=== PATIENT | male | born 1965 | race African-American/Black ===

== ENCOUNTER 2016-12-12 07:42 | Inpatient (IN) | payer BC, OTHER ==
--- NOTE | ~2016-12-12 | CN ---
Consultation Report [facility] [address] [place]. [address] NAME: AISHA HARMON : 69 STATUS : ADM IN PAT#: [id number] AGE: 51 ADM/REG DATE : 12/12/16 MR#: [id number] REPORT SERV DATE: 12/12/16 DICTATED BY: JUANITA CAMPOS DATE: 12/12/16 REPORT STATUS : Draft TRANSCRIBED BY: MODFrida DATE: 12/12/16 DATE OF CONSULTATION: HISTORY OF PRESENT ILLNESS: This is a 51-year-old patient who we were asked to see by Dr. Chaudhry. Unfortunately, the consult was requested at 10 a.m. this morning. Our service was not notified until almost 8 p.m. this evening, so the patient is being seen now. The patient himself cannot give a history, but apparently is more alert than he was when he came in to the emergency room this morning. He currently resides in [facility] and was recently treated in the hospital for weakness and chronic diarrhea. He was discharged just a few days ago. It appears that he was admitted to this facility on 11/29/2016. Chief complaints are fever, possible aspiration pneumonia, possibility of urinary tract infection, hypotension, and mild encephalopathy. The patient was cultured in the ER with blood cultures x2. Urine culture was sent. Urinalysis also was positive and urine culture is pending. He most recently was started on treatment for C difficile at the end of October and continues on Vancocin. PICC line was placed in the emergency room and the patient currently is on 2 mcg per minute of Levophed. We are asked to see him to assist in treatment of sepsis. ALLERGIES: THE PATIENT HAS NO KNOWN DRUG ALLERGIES. MEDICATIONS: At [facility] includes Tylenol, Xanax, carvedilol, aspirin, Peridex, Questran, Pepcid, gentamicin ophthalmic solution, Haldol, hydrocodone, Lantus insulin, sliding scale insulin, lisinopril, and vancomycin that was started on 12/09/2016. PAST MEDICAL HISTORY: Significant for: 1. Poorly controlled type 1 diabetes mellitus. 2. History of chronic pancreatitis, recently diagnosed C difficile colitis. 3. History of tobacco abuse and resultant COPD. 4. Nonischemic cardiomyopathy. 5. Systolic congestive heart failure, EF about 35%. 6. History of nephrolithiasis. 7. Fatty liver. 8. Essential tremor. 9. Low back pain. 10.History of hypertension. 11.Hypercholesterolemia. 12.Cholelithiasis. 13.Jejunal intussusception. 14.Erectile dysfunction. 15.Metabolic encephalopathy with severe hypoglycemic brain injury and coma. 16.History of previous left adrenal adenoma. PAST SURGICAL HISTORY: Kidney stones and PEG tube placement. The patient is a full code. Consultation Report [address] [address] NAME: AISHA HARMON : 69 STATUS : ADM IN PAT#: [id number] AGE: 51 ADM/REG DATE : 12/12/16 MR#: [id number] REPORT SERV DATE: 12/12/16 DICTATED BY: JUANITA CAMPOS DATE: 12/12/16 REPORT STATUS : Draft TRANSCRIBED BY: BALTAZAR DATE: 12/12/16 SOCIAL HISTORY: He is , Zoroastrian, unemployed, disabled, and currently resides in [facility]. FAMILY HISTORY: Significant for COPD and heart disease. REVIEW OF SYSTEMS: Unobtainable from the patient. PHYSICAL EXAMINATION: GENERAL: The patient does interact, but is difficult to understand at times. The patient is very thin, cachectic, and wasted-appearing gentleman. Does not appear to be in any respiratory distress. He is responsive, but difficult to understand. VITAL SIGNS: Temperature upon evaluation in the emergency room is 99, blood pressure currently on 2 mcg per minute of Levophed is 103/68, respiratory rate is 28, O2 saturation is 95% on 5 L, heart rate is 91. IV fluids are half normal saline at 125 mL an hour. SKIN: Warm and dry. HEENT: Head is atraumatic and normocephalic. The patient does have a nodule on the left lateral scalp that appears to be chronic. Pupils are sluggishly reactive. Sclerae anicteric. Conjunctivae are pink. Nasal mucosa is within normal limits. Oral mucosa is minimally dry. NECK: Supple without JVD, lymphadenopathy, or thyromegaly. The patient is contracted, but his extremities are able to be moved fairly easily. He has a right PICC line in place. LUNGS: Very coarse, particularly in the right lung field with occasional crackles. CARDIAC: Reveals a regular rate and rhythm with no significant murmurs and ectopic beats. GI: PEG tube is present. Bowel sounds are present. The patient has a stage IV decubitus on his sacrum. Dressing is in place. EXTREMITIES: Show significant old contractures and wasting. NEUROLOGIC: Difficult to determine, but apparently is more alert than he was when he first presented to the ER. He intermittently follows commands. Pulses are palpable and symmetrical. LABORATORY AND DIAGNOSTIC DATA: Chest x-ray shows right upper lobe infiltrate that is new. UA is positive and urine culture is pending. Procalcitonin is 18.78, lactate is 1.0. Initially, the patient was also swabbed for influenza A and B, which is negative. CBC at 7 o'clock this morning showed a white cell count of 8.8, a hemoglobin of 10, hematocrit of 30, and a platelet count of 300,000. INR is 1.1. PTT is 24, sodium is 137, potassium was 6.3, but that has come down to below 6, chloride is 114. Bicarbonate on admission was 13, BUN was 86, creatinine 1.46, glucose 386, troponin was 0.03. Lipase, AST, and ALT are within normal limits. ABG was done at 7 o'clock this morning and showed a pH of 7.29, a pCO2 of 26, pO2 of 66, and a bicarbonate of 12 and that was on nasal cannula at about 4 L. Most recent electrolyte show a sodium of 145, a potassium of 5.3, a chloride of 119, a bicarbonate of 16, a BUN which is now 71 and a creatinine which has come down to 1.13. Blood sugar is 2.15. LFTs remain normal. Lactic acid level is 1.0. EKG shows no ST- segment elevations or depressions. Consultation Report [facility] [place]. [address] NAME: AISHA HARMON : 69 STATUS : ADM IN PAT#: [id number] AGE: 51 ADM/REG DATE : 12/12/16 MR#: [id number] REPORT SERV DATE: 12/12/16 DICTATED BY: JUANITA CAMPOS DATE: 12/12/16 REPORT STATUS : Draft TRANSCRIBED BY: BALTAZAR DATE: 12/12/16 ASSESSMENT AND PLAN: This is a 51-year-old patient with multiple admissions to the hospital, mostly for fever and sepsis. Currently, he again came in with hypotension and was resuscitated with IV fluids. Cultures were done in the emergency room and currently, he is on cefepime, tobramycin, and vancomycin and these will be continued. Vancocin will be continued for Clostridium difficile diarrhea. We will check a cortisol level to see if the patient is adrenally insufficient and need Solu-Cortef. The patient also has been on antihypertensive medications in [facility]. Since he is hypotensive, these will be held until such time that he is off the Levophed. Hyperkalemia has resolved. DENIZ more than likely secondary to decreased volume status, and sepsis is slowly improving and will need to be followed. Metabolic acidosis is also improving as well and will continued to be followed. No need for bicarbonate at this time. The patient has no sacral decubitus and so wound care will see the patient as well. DVT prophylaxis, he has been provided with heparin subcutaneously and the patient currently is on Pepcid for GI prophylaxis. Diabetes mellitus, the patient currently on a sliding insulin scale. Tube feeds as per primary service through the PEG tube. Repeat lab work as well as ABG and chest x-ray will be obtained in the morning. This will be a charge for critical care time that was initiated at 2015 hours and ended at 2115 hours for a total of 60 minutes of critical care time. The patient is in critical condition and has potential for circulatory hepatic and renal failure as well as respiratory failure. He will need frequent manipulation of vasoactive drips, volume resuscitations, hemodynamic assessment, neurologic monitoring and treatment, and assessment and treatment of complex metabolic derangements. /MODL Juanita Campos M.D. / [id number] CC: Sly Chaudhry M.D.
--- NOTE | ~2016-12-12 | DS ---
Discharge Summary [facility] [address] [place]. [address] NAME: AISHA HARMON : 69 STATUS : DIS IN PAT#: [id number] AGE: 51 ADM/REG DATE : 12/12/16 MR#: [id number] REPORT SERV DATE: 01/27/17 DICTATED BY: NEELIMA SEGOVIA DATE: 01/26/17 REPORT STATUS : Draft TRANSCRIBED BY: BALTAZAR DATE: 01/26/17 Data Collection from hospitalization DISCHARGE DIAGNOSES: 1. Chronic diarrhea with history of Clostridium difficile colitis. 2. Acute kidney injury secondary to chronic diarrhea with history of chronic kidney disease. 3. Type 2 diabetes mellitus with insulin. 4. Dysphagia with PEG tube. 5. Severe protein-calorie malnutrition. 6. Electrolyte imbalance. 7. Metabolic acidosis. 8. Anemia secondary to chronic disease. 9. Hypertension. 10.History of alcohol abuse. 11.History of pancreatitis. 12.History of drug abuse. 13.Nicotine dependence. 14.Chronic obstructive pulmonary disease. 15.Systolic congestive heart failure. 16.Essential tremors. 17.Fatty liver. 18.Debilitation. 19.History of jejunal intussusception. 20.Gastroesophageal reflux disease. 21.Erectile dysfunction. 22.Hypercholesterolemia. 23.History of anoxic brain injury. CONSULTATIONS: Dr. Jordyn Campos. Dr. José Luis Narayanan Jr. Dr. Russell Menjivar. Dr. Angel Burris. Lenny Carvalho NP. PROCEDURES PERFORMED: 1. Gastrostomy tube replacement, 12/18/2016. 2. Renal ultrasound, 12/29/2016. 3. MRI of the abdomen without contrast, 12/31/2016. DISCHARGE MEDICATION: Peridex rinse one applications with mouthwash twice a day, Questran Light 4 g every four hours, Pepcid 20 mg at bedtime, ferrous sulfate 300 mg twice a day, Haldol 1 mg per PEG tube three times a day, heparin 5000 units subcutaneously every 12 hours, NovoLog injection insulin as instructed, Creon 48,000 units per PEG tube three times a day, Mag-Ox 400 mg twice a day, Reglan 5 mg every 8 hours, multivitamin liquid 5 mL per PEG tube every morning, Lopressor 12.5 mg every 12 hours as instructed, Florastor one capsule twice a day, sodium bicarbonate 1300 mg three times a day, vancomycin 125 mg every 12 hours as instructed and then 125 mg daily as instructed, Levemir 5 units subcutaneously at bedtime, Tylenol 650 mg per PEG tube three times a day as needed, Xanax 1 mg per PEG tube every eight hours as needed, Humalog injection insulin as instructed, glucose tablets three tablets as needed, [place] 7.5/325 one tablet per PEG tube every four hours as needed, Zenpep Discharge Summary [address] [address] NAME: AISHA HARMON : 69 STATUS : DIS IN PAT#: [id number] AGE: 51 ADM/REG DATE : 12/12/16 MR#: [id number] REPORT SERV DATE: 01/27/17 DICTATED BY: NEELIMA SEGOVIA DATE: 01/26/17 REPORT STATUS : Draft TRANSCRIBED BY: BALTAZAR DATE: 01/26/17 one capsule as needed, sodium bicarbonate 325 mg as needed, sodium chloride as instructed, aspirin 81 mg per PEG tube every morning. CONDITION AT DISCHARGE: Stable. DISPOSITION: The patient was discharged to [facility] on a pureed diet with activities as instructed. HOSPITAL COURSE: This is a 51-year-old man, who is well-known to me and was transferred from [facility] to the [facility] emergency room with a chief complaint of fever. The patient was recently in the hospital for weakness and chronic diarrhea. He was discharged a few days prior to this admission. Unfortunately, he returned to the emergency room at this time with fever. He was found to have probable aspiration pneumonia and questionable urinary tract infection. He also has hypertension. He was felt to have sepsis. IV fluids, antibiotics, and critical care monitoring would be provided. He was lying in bed in a semi-contracted position, which was his usual state. He was not responsive. When he was last seen at his baseline, he usually responded to some questions appropriately. He would try to get out of bed and had been somewhat interactive. He was admitted to the hospital at this time for further evaluation and treatment. Upon admission, his INR level was 1.1 and creatinine was 1.45. Chest x-ray showed right upper and lower lobe pneumonia. IV fluids were started. He was going to be covered with Zosyn for pneumonia, which was probably aspiration. Pressors would be added as needed for continued low blood pressures. Urine culture would be obtained and he would be treated accordingly. His code status was going to be addressed with his . The patient is chronically debilitated and is definitely in need of a probable DNR status as he would probably have frequent readmissions for the same chronic problems. DVT precautions were in place. Tube feedings were held. We elevated the head of his bed. When we resume his tube feedings, we would give prokinetic to avoid aspiration. A PICC line was inserted. The patient was seen by Dr. Jordyn Campos. He had recently been started on treatment for C difficile at the end of October and remained on vancomycin. A PICC line had been placed. He was receiving Levophed. She had been asked to assist in treatment of sepsis. Chest x- ray showed right upper lobe infiltrate that was new. Urinalysis was positive and urine culture was pending. Influenza A and B swabs were negative. He had been hypotensive and resuscitated with IV fluids. He was receiving cefepime, tobramycin, and vancomycin. The Vancocin would be continued for Clostridium difficile diarrhea. We would check his cortisol level. To see if he was adrenally insufficient and needed Solu-Cortef, hypertensive medications were going to be held until he was off Levophed. Hyperkalemia had resolved. It was felt that his acute kidney injury was likely secondary to decreased volume status and sepsis was slowly improving. Metabolic acidosis was also improving. There was no need for bicarbonate at this time. DVT prophylaxis was provided with heparin subcutaneously. Pepcid was continued for GI prophylaxis. He was currently on sliding scale insulin. The following day, the patient denied any pain or difficulty breathing. His fever was felt likely secondary to aspiration pneumonia. The fever was improving. Tylenol was continued for the fever. He remained on IV antibiotics. He was weaned off Levophed. Blood cultures were negative. On the , he did have brief runs of nonsustained ventricular tachycardia that morning. He was tolerating tube feedings. He had a brief episode of atrial arrhythmia the Discharge Summary [address] [place]. [address] NAME: AISHA HARMON : 69 STATUS : DIS IN PAT#: [id number] AGE: 51 ADM/REG DATE : 12/12/16 MR#: [id number] REPORT SERV DATE: 01/27/17 DICTATED BY: NEELIMA SEGOVIA DATE: 01/26/17 REPORT STATUS : Draft TRANSCRIBED BY: MODFrida DATE: 01/26/17 previous evening. Blood culture was now 1/2 positive for Gram-negative bacilli. Chest x- ray still showed right upper and lower lobe pneumonia. On , he was seen by Dr. Russell Menjivar regarding nonsustained ventricular tachycardia. The patient had developed an episode of ventricular ectopy around 7 a.m. the previous morning. The remainder of his rhythm strips were reviewed and showed only sinus rhythm. The ventricular tachycardia was nonsustained. He has a history of nonischemic cardiomyopathy with ejection fraction of approximately 35%. He agreed with the addition of beta-naeem. Electrolyte protocol was in place. He was not a candidate for AICD. He did not recommend further treatment unless this became sustained. He was also seen by Dr. Angel Burris for evaluation and treatment of multiple infections. The patient had been found to have Escherichia coli sepsis, but he felt was due to aspiration pneumonia and probably other organisms, including alpha strep and anaerobics involved in that. He had a positive urine culture that could be chronic with him since he has a chronic Gant and this may not be playing much of a role now. He has Clostridium difficile colitis and the treatment of this would be made much more difficult with trying to treat Escherichia coli sepsis. We were going to change his gram-negative coverage to gentamicin. We would give this for seven days if he could tolerate it. It was felt that he would need two or three more days of intravenous vancomycin and Flagyl because of the aspiration event. Oral vancomycin would be continued for at least three weeks and then tapered. He was evaluated by Physical Therapy. On 12/16/2016, antibiotics were continued. He seemed to be tolerating his tube feedings. His urine culture was positive for Klebsiella. Blood culture 1/2 is positive for E coli. He had no nausea or vomiting. He had no fevers or chills. On , he seemed to be feeling better. He was afebrile. IV vancomycin and Flagyl were stopped. Bactrim and oral vancomycin were continued. The patient underwent gastrostomy tube replacement as it was found to be clogged. On the following day, he denied any shortness of breath, chest pain, nausea, vomiting, or abdominal pain. He was tolerating tube feedings and had no other issues after the PEG tube had been clogged and replaced. He developed some right-sided conjunctivitis and this was improving. The nurse stated that the patient had some increased agitation and had been given Ativan. On , he completed his IV gentamicin. He tolerated a bedside swallow study. His sliding scale insulin was increased to level 2. Levemir was increased. He was beginning to tolerate an oral diet. He had no residual issues with tube feedings. Antibiotic treatment continued. The patient denied any breathing difficulties. He does have some mild upper rhonchi. Chest x-ray showed improvement. On 12/28/2016, he was up sitting in a chair. He denied any complaints of shortness of breath, chest pain, nausea, vomiting, or abdominal pain. His stools had become more formed. He was seen by Lenny Carvalho. Creatinine had risen to 2.52. It was felt that the patient likely had acute kidney injury related to possible volume contraction and his hyperkalemia is resultant from his acidosis. We would not use Kayexalate considering his chronic diarrhea and treat him with 10 units of regular insulin and 0.5 amp of D50 quarter normal saline with 2 amps of bicarbonate. We would recheck his blood glucose one hour following this to avoid any instances of unseen hypoglycemia. A renal ultrasound was going to be checked as he does have a history of renal stones. He does have good urinary output. He was not felt to be considered a dialysis patient should his renal function continued to deteriorate due to his multiple comorbidities and medical history. We were hopeful that he would return to his previous baseline over the next 72 hours. Discharge Summary [address] [address] NAME: AISHA HARMON : 69 STATUS : DIS IN PAT#: [id number] AGE: 51 ADM/REG DATE : 12/12/16 MR#: [id number] REPORT SERV DATE: 01/27/17 DICTATED BY: NEELIMA SEGOVIA DATE: 01/26/17 REPORT STATUS : Draft TRANSCRIBED BY: MODFrida DATE: 01/26/17 On 12/30/2016, renal ultrasound had been performed. He denied any complaints of pain. He tolerated his tube feedings nocturnally. Creatinine level was now 2.84. On , an MRI of the abdomen without contrast was performed. The nurse was unable to flush the Gant catheter and this was changed. He had been found to have a solid 1.6 cm left renal upper pole cortical nodule with mild internal vascularity. There was an indeterminate left renal 2.1 cm interpolar potential solid nodule versus cyst, filled with internal debris. There were multiple bilateral nonobstructing renal calculi. He had no hydronephrosis. There were small bilateral renal cysts. His MRI had shown two suspicious renal lesions. Additional follow up is recommended. It was felt that two lesions in the right middle lobe were suspicious for either multifocal pneumonia or metastatic disease. He had no new complaints. He was seen by Dr. José Luis Narayanan Jr, regarding difficult Gant placement. His catheter was due to be changed that morning and this was attempted. His old catheter was removed. The nursing staff was unable to replace the catheter. The patient's said that he had this catheter for several years. He had been catheter dependent due to incontinence. He had not seen a urologist, although he does have a history of nephrolithiasis with the above stated chronic retention and Gant placement. He was nonverbal, but could follow commands quite well. Urine culture was positive for yeast. Creatinine level was now 2.93. He replaced the Gant catheter to an 18-Tajik coude under sterile conditions. There was some difficulty navigating the prostate, but overall reasonably easy catheter placement. He recommended that the patient be continued on catheter changes at [facility]. He wanted to follow up with the patient in approximately one year for repeat imaging of the renal mass. He had good urine output. IV fluids were continued. The IV fluids were decreased. His C difficile diarrhea had improved. Hyperkalemia had also improved. He continued to request something to eat. The fluids were adjusted. The patient did have some acute bleeding of the sacral wound. He was seen by Dr. Lenny Pate. The patient did have some oozing of the wound. This was packed with Surgicel. Sterile dressing was applied. C difficile study was now negative. Creatinine had decreased to 2.78. On 01/07/2017, he was less conversant. He was in no distress. He denied pain, nausea, vomiting, or diarrhea. He was afebrile. He seemed to be eating well. He did have some diarrhea. He does have a history of C difficile colitis. IV fluids were increased. His diarrhea worsened. The patient was eating very well. On , the patient was seen by Dr. Galdino Amador regarding palliative care. The patient was felt to have multiorgan failure. He was C difficile negative at this time. He was felt to possibly have metastatic cancer-suspect renal. He is not a candidate for any type of therapy, except comfort care. At times, the patient was still try to get out of bed. Fall precautions were still in place. Potassium level had increased. The patient was still a full code at this time. He continued to have persistent diarrhea. The patient's dismal prognosis was discussed with the patient's family. Options of care were discussed. Palliative care was begun. He remained stable over the next couple of days. Discharge planning was performed. The patient's rectal tube was accidentally pulled out by the patient. On 01/16/2017, it was elected to keep the rectal tube out. The patient had been made a DNR code status. Creatinine level was 3.01. Discharge instructions were given. Due to his stable condition, he was transferred to [facility] with the above-stated instructions. Information collected by: Brooke Arellano Discharge Summary [address] [address] NAME: AISHA HARMON : 69 STATUS : DIS IN PAT#: [id number] AGE: 51 ADM/REG DATE : 12/12/16 MR#: [id number] REPORT SERV DATE: 01/27/17 DICTATED BY: NEELIMA SEGOVIA DATE: 01/26/17 REPORT STATUS : Draft TRANSCRIBED BY: MODFrida DATE: 01/26/17 I submit the above information as my discharge summary. LUCY/BALTAZAR Neelima Segovia M.D. / [id number] CC: Nicky Gonzalez M.D., [facility] Lenny Carvalho, Nicky Larson Jr., Jr., M.D. Robert Warren Goldmann, M.D. Angel [place], M.D.
--- NOTE | ~2016-12-12 | CN ---
Consultation Report [facility] [address] [place]. [address] NAME: AISHA HARMON : 69 STATUS : ADM IN PAT#: [id number] AGE: 51 ADM/REG DATE : 12/12/16 MR#: [id number] REPORT SERV DATE: 01/01/17 DICTATED BY: JOSÉ LUIS NARAYANAN JR. DATE: 01/01/17 REPORT STATUS : Draft TRANSCRIBED BY: MODL DATE: 01/01/17 CONSULT NOTE DATE OF CONSULTATION: 01/01/2017 REFINERY PIPELINE OPERATOR: José Luis Narayanan MD. CHIEF COMPLAINT: Difficult Gant placement. HISTORY OF PRESENT ILLNESS: Mr. Harmon is a 51-year-old gentleman, who was admitted to the hospital on 12/12/2016 with a complaint of fever. He was transferred from [facility] [place] to [facility] due to the patient's decreased mental status and difficulty of obtaining history. The patient was admitted to the hospital for further observation. He has been in the hospital since that time. His catheter was due to be changed this morning, and this was attempted. His old catheter was removed, and the nursing staff was unable to replace the catheter. I was consulted for Gant placement. I spoke to the patient's , she told me that he has had this catheter for several years. He has been catheter dependent due to incontinence. He has not seen urologist although he does have a history of nephrolithiasis and the above stated chronic retention and Gant placement. He is nonverbal but does follow commands quite well. I was unable to get any other history than that. MEDICATIONS: Please see the medical record in the chart. I reviewed those medications. ALLERGIES: NONE KNOWN. PAST MEDICAL HISTORY: Significant for insulin-dependent diabetes poorly controlled, alcohol abuse, pancreatitis, drug abuse, nicotine dependence, COPD, systolic CHF with nonischemic cardiomyopathy, essential tremors, fatty liver, chronic diarrhea, diagnosis of C. diff while in the hospital, overall debilitation, jejunal intussusception in the past, cholelithiasis, nephrolithiasis, gastroesophageal reflux disease, hypertension, erectile dysfunction, and hypercholesterolemia. SOCIAL HISTORY: Resides at [facility]. He is , unemployed and disabled, history of smoking in the past as well as drinking and drug abuse but none currently. FAMILY HISTORY: Mother and brother with COPD, father with heart disease. REVIEW OF SYSTEMS: Review of systems unable to be obtained due to the patient's mental status. PHYSICAL EXAMINATION: GENERAL: He is a thin male in no acute distress. VITAL SIGNS: He is afebrile, his vital signs are stable. Consultation Report [facility] [id number] [place]. [address] NAME: AISHA HARMON : 69 STATUS : ADM IN PAT#: [id number] AGE: 51 ADM/REG DATE : 12/12/16 MR#: [id number] REPORT SERV DATE: 01/01/17 DICTATED BY: JOSÉ LUIS NARAYANAN JR. DATE: 01/01/17 REPORT STATUS : Draft TRANSCRIBED BY: BALTAZAR DATE: 01/01/17 HEENT: Normocephalic and atraumatic. NECK: Symmetric. CHEST: Clear to auscultation bilaterally. HEART: Regular rate and rhythm. ABDOMEN: Soft, nontender, nondistended without palpable hernias. : He has a PEG tube in place. He has a normal male external genitalia with eroded meatus from chronic indwelling Gant. LABORATORY: Urine culture was positive for yeast, creatinine level 2.93 which he is known to have chronic stage III renal failure, white blood cell count 4.2, hemoglobin 9.2, platelets 469. IMAGING: MRI the abdomen without contrast shows a small cortical cyst on the right side. No hydronephrosis on the left side. There is a 1.1 x 0.9 cm low signal intensity structure in the left kidney. This is worrisome for representing hemorrhagic or calcified tumor. CT scan from 12/14/2016 did not demonstrate calcium in this area, however, detail without contrast is quite poor. There was also partially exophytic cyst in the mid cortex and also again on the lower pole on the left side. ASSESSMENT: Urinary retention, small left renal mass, less than 1 cm. RECOMMENDATIONS: I replaced the Gant catheter to 18-[place] under sterile conditions. There was some difficulty navigating the prostate but overall reasonably easy catheter placement. I have recommended he continue catheter changes at [facility]. I will need to follow him back in approximately one year for repeat imaging of this renal mass. We will arrange for followup prior to discharge with a renal ultrasound in one year. CHANTEL José Luis Narayanan Jr., M.D. / [id number] CC: Sly Chaudhry M.D.
--- NOTE | ~2016-12-12 | CN ---
Consultation Report [facility] [address] [place]. [address] NAME: HARMEET HARMON : 69 STATUS : ADM IN PAT#: [id number] AGE: 51 ADM/REG DATE : 12/12/16 MR#: [id number] REPORT SERV DATE: 12/15/16 DICTATED BY: RUSSELL FARIAS DATE: 12/15/16 REPORT STATUS : Draft TRANSCRIBED BY: MODFrida DATE: 12/15/16 CARDIOVASCULAR CONSULTATION DATE OF CONSULTATION: 12/15/2016 REASON FOR CONSULTATION: Nonsustained ventricular tachycardia. HISTORY OF PRESENT ILLNESS: Mr. Harmeet Harmon is a 51-year-old gentleman with past medical history significant for anoxic brain injury. He resides at [facility]. He also has a history of nonischemic cardiomyopathy, COPD, hypertension, hyperlipidemia, alcohol abuse with fatty liver disease. He was admitted with sepsis, hypotension, and metabolic derangements. He had an episode of ventricular ectopy which was at about 7 a.m. yesterday morning. The remainder of the rhythm strips were reviewed and show only sinus rhythm. The ventricular tachycardia was nonsustained. The patient is unable to provide interview. He responds to questioning with "I am hungry." PAST MEDICAL HISTORY: As noted above significant for nonischemic cardiomyopathy, sepsis, hypotension, COPD, hypertension, and hyperlipidemia. The patient also has been diagnosed with C. difficile. He has a history of nephrolithiasis. He has a history of alcohol abuse, chronic pancreatitis, and fatty liver. His last known ejection fraction was approximately 35%. Patient also with a history of metabolic encephalopathy with severe hypoglycemic brain injury and coma. He is status post PEG tube placement. SOCIAL HISTORY: The patient resides at [facility]. He does not currently smoke. FAMILY HISTORY: Noncontributory. PHYSICAL EXAMINATION: VITAL SIGNS: Blood pressure 112/79, pulse 81, temperature 98.9, and respiratory rate 16. GENERAL: This is a thin chronically ill-appearing 51-year-old gentleman who is unable to provide appropriate response to questioning. CARDIOVASCULAR: Normal rate with regular rhythm. A 1/6 systolic murmur heard best at the left lower sternal border. LUNGS: Revealed fair excursion with diffuse rhonchi but no wheezes or rales. EXTREMITIES: Without clubbing, cyanosis, or edema. DATA: EKG shows sinus tachycardia with nonspecific ST-T-wave abnormalities. LABORATORY: Significant for hematocrit of 26. BUN and creatinine 28 and 0.72. Potassium was 4.0. Magnesium was borderline at 1.7. ASSESSMENT: 1. Nonsustained ventricular tachycardia. Consultation Report [facility] [id number] [place]. [address] NAME: HARMEET HARMON : 69 STATUS : ADM IN PAT#: [id number] AGE: 51 ADM/REG DATE : 12/12/16 MR#: [id number] REPORT SERV DATE: 12/15/16 DICTATED BY: RUSSELL FARIAS DATE: 12/15/16 REPORT STATUS : Draft TRANSCRIBED BY: MODL DATE: 12/15/16 2. History of nonischemic cardiomyopathy, ejection fraction approximately 35%. 3. Chronic obstructive pulmonary disease. 4. Hypertension. 5. Hyperlipidemia. 6. Admitted for sepsis and hypotension. PLAN: 1. Now that the patient's vital signs are stable, I agree with the addition of beta naeem. 2. Electrolyte protocol. 3. Patient not a candidate for AICD. We would not recommend further treatment unless it becomes sustained. I appreciate your consultation. I will be available as needed. /BALTAZAR Russell Farias M.D., [facility] / [id number] CC: Sly Chaudhry M.D.
--- NOTE | ~2016-12-12 | CN ---
Consultation Report [facility] [address] [place]. [address] NAME: AISHA HARMON : 69 STATUS : ADM IN PAT#: [id number] AGE: 51 ADM/REG DATE : 12/12/16 MR#: [id number] REPORT SERV DATE: 12/15/16 DICTATED BY: RIMMA CANAS DATE: 12/15/16 REPORT STATUS : Draft TRANSCRIBED BY: MODL DATE: 12/15/16 INFECTIOUS DISEASE CONSULTATION DATE OF CONSULTATION: REASON FOR REFERRAL: Evaluation and treatment of multiple infections. HISTORY OF PRESENT ILLNESS: This is a 51-year-old male with a past medical history of diabetes mellitus, past IV drug and ethanol abuse, severe pancreatitis, chronic obstructive pulmonary disease, congestive heart failure, fatty liver, hypertension, and hyperlipidemia. He was just here in October, at which time he had Clostridium difficile colitis. He went back to the long-term care facility he was staying in, but became in on 12/12/2016 with two days of fevers and decreased mental status. He had an observed aspiration and had marked infiltrates on his right middle lobe and right lower lobe. [place] to be aspiration pneumonitis. He also had a very abnormal urinalysis greater than 182 white cells, leukocyte esterase strong positive. Cultures were sent. It was assumed that the C. diff was still present, so oral vancomycin has been started as well. He was given IV vancomycin and aztreonam empirically. Since then, the urine has grown out a pansensitive Klebsiella. His blood is positive one of two for E. coli that is relatively resistant, but sensitive to the aztreonam. He defervesced, but mental status remains abnormal. He has no decubitus ulcers or sores. No other likely sources of infection. PAST MEDICAL HISTORY: Otherwise unremarkable. MEDICATIONS: As outlined above. ALLERGIES: HE HAS NO KNOWN ANTIMICROBIAL ALLERGIES. SOCIAL HISTORY: As above. He is . He has two children, but very debilitated and is now currently bed bound in a long-term care facility. FAMILY HISTORY: Noncontributory. PHYSICAL EXAMINATION: GENERAL: An ill-appearing, adult, male. Eyes open, but not really responding to speech which he usually does per his mother. VITAL SIGNS: His temperature was 103 just after he came in, but he has been afebrile last 24 hours, 97.4 at present with a pulse of 71, respirations 20, blood pressure is 146/97. His weight is 51 kg. HEENT: Sclerae clear. No oral lesions could be seen. NECK: Supple. LUNGS: Bilateral heavy rhonchi, particularly throughout the right lung kearns, a few on the left. HEART: Regular rate and rhythm. Consultation Report [facility] [id number] [place]. [address] NAME: AISHA HARMON : 69 STATUS : ADM IN [facility]#: [id number] AGE: 51 ADM/REG DATE : 12/12/16 MR#: [id number] REPORT SERV DATE: 12/15/16 DICTATED BY: RIMMA CANAS DATE: 12/15/16 REPORT STATUS : Draft TRANSCRIBED BY: BALTAZAR DATE: 12/15/16 ABDOMEN: Soft, nontender. Positive bowel sounds. EXTREMITIES: Without clubbing, cyanosis, or edema. No wounds are noted. IV site without signs of inflammation. LABORATORY DATA: His white blood cell count was 8.8 when he came in, 7.7 today with hematocrit 26.3, platelets 347. At admission, he had 78% bands. Differential now is normal. BUN and creatinine are 28 and 0.72. His procalcitonin 18.78. Cultures, as previously mentioned. IMPRESSION: 1. Escherichia coli sepsis, that I think is due to an aspiration pneumonia and probably other organisms including alpha strep and anaerobes involved in that. 2. Positive urine culture that could be chronic with him since he has a chronic Gant, and may not be playing much of a role now. 3. Clostridium difficile colitis, the treatment of which would be made much more difficult with trying to treat Escherichia coli sepsis. RECOMMENDATIONS: 1. We will change his gram-negative coverage to gentamicin. Check a trough tomorrow to ensure it is not being overdosed, and we will give seven days of that if he is able tolerate it. 2. I think he needs two to three more days of intravenous vancomycin and Flagyl because of the aspiration event. 3. Continue oral vancomycin for at least three weeks and then, taper it. Finally, I will follow the patient with you. I appreciate very much your consulting on this patient. ADRIAN Rimma Canas M.D. / [id number] CC: Sly Chaudhry M.D.
--- NOTE | ~2016-12-12 | CN ---
Consultation Report [facility] [address] [place]. [address] NAME: AISHA HARMON : 69 STATUS : ADM IN PAT#: [id number] AGE: 51 ADM/REG DATE : 12/12/16 MR#: [id number] REPORT SERV DATE: 12/29/16 DICTATED BY: DATE: REPORT STATUS : Draft TRANSCRIBED BY: MODL DATE: 12/29/16 CONSULTATION DATE OF CONSULTATION: REASON: Acute kidney injury, acidosis, hyperkalemia. HISTORY OF PRESENT ILLNESS: This is a fairly pleasant 51-year-old male patient who resides at [facility], who presented initially on 12/02/2016 to [facility] with a complaint of fever. He was admitted in favor of further supportive care and required ICU level care and seen in consultation by Critical Care Services on 12/12/2016 on admission. He was also seen by Cardiology on 12/15/2016 for a nonsustained ventricular tachycardia and was seen in consultation by Infectious Disease for evaluation of multiple infections and antibiotic recommendations. He is currently positive for C. difficile and remains on p.o. vancomycin for active treatment. Creatinine baseline appears to be by history sub 1.0 as late as 12/21/2016 at 0.83. Laboratories were not collected again until 12/25/2016 showing a creatinine of 1.51. On 12/26/2016, it was at 1.89. Laboratories were not collected again until 12/27/2016 showing a creatinine of 2.02; 12/28/2016, 2.23; and now 2.52. The patient is sitting at bedside. It is difficult for him to participate in HPI due to previous anoxic brain injury, but he is awake and alert, in no acute distress. Denies current chest pain. No current nausea or vomiting, is chronic for diarrhea. PAST MEDICAL HISTORY: Positive for chronic diarrhea, recent medical history as listed above, positive for C. difficile colitis, insulin-dependent diabetes mellitus type 1 which is poorly controlled, history of EtOH abuse, pancreatitis, drug abuse, nicotine dependent, COPD, systolic CHF with nonischemic cardiomyopathy with ejection fraction of 35-40%, essential tremors, fatty liver, recent chronic diarrhea as above with C. difficile diagnosis, overall debilitation, jejunal intussusception, cholelithiasis, nephrolithiasis, GERD, hypertension, erectile dysfunction, and hypercholesterolemia. PAST SURGICAL HISTORY: Kidney stones and PEG tube placement. SOCIAL HISTORY: Resides at [facility]. Unemployed and disabled. History of smoking and drinking and drug abuse with anoxic brain injury related by history of drug abuse. FAMILY HISTORY: Noncontributory and not reviewed during this consultation and dictation. REVIEW OF SYSTEMS: Completed primarily with assistance of nursing staff as well as previous available dictations as the patient is not able to fully participate in the HPI review. ALLERGIES: HE LISTS NO KNOWN MEDICATION ALLERGIES. Consultation Report [facility] [id number] [place]. [address] NAME: AISHA HARMON : 69 STATUS : ADM IN PAT#: [id number] AGE: 51 ADM/REG DATE : 12/12/16 MR#: [id number] REPORT SERV DATE: 12/29/16 DICTATED BY: DATE: REPORT STATUS : Draft TRANSCRIBED BY: BALTAZAR DATE: 12/29/16 ACTIVE MEDICATIONS: Include liquid tears, aspirin, Peridex rinse, Questran, Pepcid, ferrous sulfate, Haldol, heparin, and NovoLog sliding scale. Also Creon, Reglan, Lopressor, multivitamin, and Vancocin p.o. He does have antiemetic medications as well as antihypoglycemic medications and also electrolyte protocol. PHYSICAL EXAMINATION: VITAL SIGNS: Blood pressure at 112/76, pulse 74, 98.1 temperature, and saturation 98% on room air. GENERAL: He is awake and alert, in no acute distress. HEENT: Normocephalic, atraumatic. Normal ocular movements. No scleral icterus or conjunctival pallor is appreciated. NECK: Without thyromegaly. No JVD or mass. CHEST: Shows positive S1 and S2. No rubs or gallops. LUNGS: Diminished throughout normal expansion and effort bilaterally. No adventitious breath sounds are noted. GI: Positive bowel sounds in all four quadrants. No appreciable mass or tenderness. : Examination is deferred. He does have a Gant catheter to bedside drainage with clear yellow urine. NEUROLOGIC: He is unable to be tested, but does have a gross motor deficits as noted to previous anoxic brain injury. SKIN: Warm, dry, and intact to visualized surfaces. No rash, lesions, or ecchymosis. PSYCH: He is of appropriate mood and affect and mentation seems slow but clear overall. LABORATORY DATA: Pertinent laboratories and imaging to this evaluation are as follows. Electrolyte profile shows a sodium of 129, potassium 6.0, chloride 102, CO2 14, BUN 35, creatinine 2.52, reflected GFR 33 mL/minutes, glucose of 209, calcium at 9.6. Most recent CBC taken on 12/25/2016, white blood cells of 9.9, RBC 3.68, hemoglobin 10.1, hematocrit 31.2, platelets at 588. IMPRESSION AND PLAN: This is a 51-year-old male patient, long complicated medical history as listed above, recent admission to [facility] with sepsis like picture and positive for C. difficile and multiple infections followed by subspecialties as listed now though with an acute kidney injury, hyperkalemia, and acidosis with laboratory pattern as listed above. The patient likely has an acute kidney injury related to possible volume contraction and his hyperkalemia is resultant from his acidosis. We would forego use of Kayexalate considering his chronic diarrhea and treat him with 2 units of regular insulin and half an amp of D50, quarter normal saline with 2 amps of bicarb at 125. Recheck his blood glucose in 1 hour to avoid any instances of unseen hypoglycemia. Considering his history of renal stones, we will also check a renal ultrasound to rule that out. He does however have good urinary output and I feel at this point that the patient would not be considered a dialysis patient should his renal function continue to deteriorate due to his multiple comorbidities and medical history. We are hopeful, with measures as taken above. He will return to his previous baseline over the next 72 hours. We appreciate the opportunity to provide consultation and assistance in this patient's care. Modification may Consultation Report [facility] [address] [place]. [address] NAME: AISHA HARMON : 69 STATUS : ADM IN PAT#: [id number] AGE: 51 ADM/REG DATE : 12/12/16 MR#: [id number] REPORT SERV DATE: 12/29/16 DICTATED BY: DATE: REPORT STATUS : Draft TRANSCRIBED BY: BALTAZAR DATE: 12/29/16 be undertaken based on clinical presentation of the patient, laboratory results, further consultation with renal attending. /BALTAZAR Lenny Carvalho NP / [id number] CC: Sly Chaudhry M.D.
--- NOTE | ~2016-12-12 | HP ---
History And Physical [address] [place]. [address] NAME: AISHA HARMON : 69 STATUS : ADM IN PAT#: [id number] AGE: 51 ADM/REG DATE : 12/12/16 MR#: [id number] REPORT SERV DATE: 12/12/16 DICTATED BY: NEELIMA SEGOVIA DATE: 12/12/16 REPORT STATUS : Draft TRANSCRIBED BY: BALTAZAR DATE: 12/12/16 DATE OF ADMISSION: 12/12/2016 CHIEF COMPLAINT: Fever. HISTORY OF PRESENT ILLNESS: A 51-year-old black male well known to me was transferred from [facility] to [facility] Emergency Room for the above complaint. Due to patient's decreased mental status, full history and physical exam difficult to obtain. Chart and staff were reviewed. The patient was recently in the hospital for weakness and chronic diarrhea. Please see old medical records. He was recently discharged a few days ago. Unfortunately, he returned to the emergency room today with fever. He was noted to have probable aspiration pneumonia and questionable urinary tract infection. He also has hypertension and therefore was admitted for sepsis, IV fluids, IV antibiotics, and critical care monitoring. Currently, the patient is lying in bed, semi-contracted in his usual state, is not as responsive as he was when I saw him last time when baseline, he is usually responding to some questions appropriately, trying to get out of bed, and somewhat interactive. ALLERGIES: NO KNOWN DRUG ALLERGIES. MEDICATIONS: Please see MAR. PAST MEDICAL HISTORY: IDDM type 1, poorly controlled, history of alcohol abuse, pancreatitis, drug abuse, nicotine dependence, COPD, systolic CHF with nonischemic cardiomyopathy with ejection fraction of 35 to 40%, essential tremors, fatty liver, recent chronic diarrhea that was diagnosed with C. diff, overall debilitation, jejunal intussusception, cholelithiasis, nephrolithiasis, GERD, hypertension, erectile dysfunction, and hypercholesterolemia. CODE STATUS: Full code. PAST SURGICAL HISTORY: Kidney stones, PEG tube placement. SOCIAL HISTORY: The patient resides at [facility], is , Mosque mormon, unemployed and disabled, history of smoking and drinking and drug abuse. FAMILY HISTORY: Mother and brother with COPD and father with heart disease. REVIEW OF SYSTEMS: Unable to obtain due to the patient's decreased mental status. PHYSICAL EXAMINATION: VITAL SIGNS: Blood pressures-have been running low in the 80s, trying IV fluid resuscitation at this time, pulse 120s that appears just to be sinus tach, respirations 16 History And Physical [address] [address] NAME: AISHA HARMON : 69 STATUS : ADM IN PAT#: [id number] AGE: 51 ADM/REG DATE : 12/12/16 MR#: [id number] REPORT SERV DATE: 12/12/16 DICTATED BY: NEELIMA SEGOVIA DATE: 12/12/16 REPORT STATUS : Draft TRANSCRIBED BY: MODFrida DATE: 12/12/16 to 20, temp on arrival to the emergency room was 99.0. GENERAL: Black male well known to me, lying in bed and is not in his usual mental status. HEAD: Normocephalic with old left-sided nodule that is chronic. EYES: Mildly red conjunctivae which is usual for him but otherwise unremarkable. ENT: O2 present with poor dentition and moist otherwise. NECK: Cachectic. LUNGS: Bilateral rhonchi and rales in the bases. HEART: Tachycardic without murmurs, gallops, or rubs. ABDOMEN: PEG tube is present, positive bowel sounds, otherwise no signs or symptoms of tenderness. EXTREMITIES: Old contractures, otherwise wasting is present. SKIN: The patient has old sacral pressure ulcer that appears to be improving at this time. Please see wound care. NEUROLOGIC: Chronic neurological changes and the patient is not in his normal mental status at this time. LABS: CBC shows WBC 8.8, H and H 10.1 and 30.9, and PLT 300. INR 1.1. Chemistry shows NA 143, K 5.2, CO of 116, CO2 of 13, lactate 1.4 (capital N), BUN 80, creatinine 1.45, GFR 65. Glucose 284. Albumin 2.8 (capital L). Liver functions unremarkable at this time. Cardiac enzyme is negative. Blood gas shows pH 7.29, pCO2 of 26, PO2 of 66, base excess is -13, bicarb is 12, and O2 saturation 91%. Urinalysis shows Gant, sample that is cloudy and otherwise appears to have many yeast and many bacteria. Culture pending at this time. X-RAY: Portable chest x-ray done in the emergency room shows right upper and lower lobe pneumonia. IMPRESSION: 1. Fever. 2. Right upper and lower lobe pneumonia, probably aspiration as well as health center- acquired pneumonia. 3. Mixed acid base disorder. 4. Sepsis, probably secondary to pneumonia. 5. Pyuria with Gant-chronic Gant. 6. Acute kidney injury on chronic kidney disease, stage III now. 7. IDDM type 1-poorly controlled. 8. Hyperkalemia. 9. Anemia of chronic disease. 10.History of alcohol and drug abuse. 11.COPD. 12.Systolic CHF with nonischemic cardiomyopathy. 13.Gastroesophageal reflux disease. 14.Hypertension. 15.Recent infection with Clostridium difficile colitis. PLAN: 1. We will admit, give IV fluids, and treat fever. 2. We will cover with Zosyn for pneumonia which is probably aspiration. The patient is at risk for respiratory failure. History And Physical [address] [address] NAME: AISHA HARMON : 69 STATUS : ADM IN [facility]#: [id number] AGE: 51 ADM/REG DATE : 12/12/16 MR#: [id number] REPORT SERV DATE: 12/12/16 DICTATED BY: NEELIMA SEGOVIA DATE: 12/12/16 REPORT STATUS : Draft TRANSCRIBED BY: BALTAZAR DATE: 12/12/16 3. Support with IV fluids at this time. We will add pressors as needed for continued low blood pressures. 4. Follow up on urine culture and treat accordingly as the patient is at risk for pyelonephritis. 5. Follow renal function. He is at risk for hemodialysis. 6. Control blood sugars as he is at risk for DKA. 7. We will follow up potassium with IV fluids and suspect it will correct with the patient getting better. 8. Control blood pressure. He is at risk for CVA. 9. We will watch C. diff symptoms. Obviously antibiotics will not help him with his chronic diarrhea at this time. 10.We will call the and address code status as the patient is chronically debilitated and is definitely in need of a probable DNR status as he will probably have frequent readmissions for same chronic problems. 11.DVT precautions. 12.Hold tube feedings at this time and elevate head of bed as he is at risk for aspiration. 13.When resuming tube feedings, we will give prokinetics to try to avoid aspiration. RH/MODL Neelima Segovia M.D. / [id number] CC: Neelima Segovia M.D.
[2016-12-12 07:16] LABS: BASOPHILS 0.1 %; BASOPHILS ABSOLUTE 0.01 10/3/uL (0.0-0.16); EOSINOPHILS 0.1 %; EOSINOPHILS ABSOLUTE 0.01 10/3/uL (0.0-0.53); ER CBC TAT 0 Hrs 08 Mins; HEMATOCRIT 30.9 % (40.0-51.0); HEMOGLOBIN 10.1 g/dL (13.6-17.8); IMMATURE GRANULOCYTES 0.1 %; IMMATURE GRANULOCYTES ABSOLUTE 0.01 10/3/uL (0.0-0.11); LYMPHOCYTES 7.5 %; LYMPHOCYTES ABSOLUTE 0.66 10/3/uL (0.67-4.30); MEAN CORPUS HGB CONC 32.7 g/dL (32.0-36.0); MEAN CORPUSCULAR HEMOGLOB 27.2 pg (26.0-34.0); MEAN CORPUSCULAR VOLUME 83.3 fL (80-100); MEAN PLATELET VOLUME 10.7 fL (9.2-13.0); MONOCYTES 9.5 %; MONOCYTES ABSOLUTE 0.84 10/3/uL (0.21-1.20); NEUTROPHILS 82.7 %; NEUTROPHILS ABSOLUTE 7.31 10/3/uL (2.02-8.40); PLATELET COUNT 300 10/3/uL (150-400); RBC DISTRIBUTION WIDTH 19.1 % (12.0-16.0); RED CELL COUNT 3.71 10/6/uL (4.7-6.1); WHITE BLOOD CELLS 8.8 10/3/uL (4.5-10.5)
[2016-12-12 07:17] LABS: MANUAL DIFF NO %
[2016-12-12 07:20] LABS: INTERNATIONAL NORMAL RATI 1.1 UNITS (-); PARTIAL THROMBO TIME 24.8 SEC (22.5-37.2); PROTIME (NOT ORD) 14.5 SEC (12.0-14.5)
[2016-12-12 07:32] LABS: LACTATE 1.4 MMOL/L (0.3-2.4)
[~2016-12-12 07:42] MED LIST: *UNABLE1; *UNABLE3; 8 HOUR650 MG PEG; ASAB PEG; ASAB PO; BANATROL PEG; BLOOD PRESSURE MED PO; BLOOD PRESSURE TAB PO; CIALIS20 MG PO; COMBIVENT INH; COMBIVENT RESPIM4 GM INH; COREG3 PEG; COREG3 PO; COREG6 PO; CREON DR 3,0001 EACH PEG; CREON PO; CREON12000 UNT PO; CREON6000 UNIT PO; DUONEB INH; FLORASTOR250 MG PO; GENTAK0.3 % OPH; GEODON20 PO; GEODON40 MG PO; GLUCAGON IM; H1 PEG; H1 PO; HUMALOG; HUMALOG SC; IMDUR30 PO; IMOD PEG; L20 PO; LANTUS; LANTUS SC; LANTUSCART SC; LEVEMIR SC; LISINOPRIL PO; LOFIB160 PO; MONODOX100 MG PEG; MORPHINE 10 MG/5 ML PEG; NEBULIZER MED INH; NEUR100 PO; NICODERM C14 MG/24 H TOP; NORCO1 TA2 PEG; NORV10 PO; NOVOLOG; NOVOLOG SC; NOVOLOG SQ; NOVOPEN SC; NUEDEXTA 20-101 EACH PO; OXYCON80 PO; PANCREALIPASE PO; PANCREAZE 21,01 EACH PO; PANCREAZE PEG; PANCRELIPASE; PCET PO; PEP20 PEG; PERCOCET1 TA4 PO; PERIDEX MT; PERIOGARD0.12 %; PERIOGARD0.12 % MT; PRIN10 PEG; PRIN10 PO; PRIN20 PO; PROAIR HFA INH; PROTONIX PO; PROVHFA INH; QUESTRAN4 GM PO; SEROQUEL25 PO; SOD CHLORIDE1 G1 PEG; SUCR PO; THERA MULTI1 ML PEG; VIOKASE OR; VIOKASE PO; X5 PEG; X5 PO; XANAX1 MG PEG; XANAX1 MG PO; ZENPEP PO; ZENPEP5000 UNIT PO; ZESTORETIC PO; ZESTORETIC1 TAB PO; ZOFRAN ODT4 MG PO; [UNRECOGNIZED DRUG - REMARK]; [UNRECOGNIZED DRUG - REMARK]
[2016-12-12 08:27] LABS: ASCORBIC ACID (UR NOT ORDER) 40 (NEG); BILIRUBIN, URINE NEGATIVE (NEG); ER URINALYSIS TAT 0 Hrs 21 Mins; KETONE, URINE NEGATIVE (NEG); LEUKOCYTE ESTERASE(NOT OR LARGE (NEG); NITRITE (URINE) NEG (NEG)
[2016-12-12 08:31] LABS: INFLUENZA A SCREEN NEGATIVE (NEGATIVE); INFLUENZA B SCREEN NEGATIVE (NEGATIVE)
[2016-12-12 08:44] LABS: A/G RATIO 0.6 (0.7-1.9); ALBUMIN 2.8 G/DL (3.5-5.0); CALCIUM, SERUM 9.6 MG/DL (8.5-10.4); CHLORIDE, SERUM 114 MMOL/L (96-112); GLOBULIN 4.7 G/DL (2.5-4.1); SGOT(AST) 28 U/L (5-40); SGPT(ALT) 32 U/L (5-65); SODIUM, SERUM 137 MMOL/L (135-148); TOTAL BILIRUBIN 0.3 MG/DL (0-1.2); TOTAL PROTEIN 7.5 G/DL (6.0-8.5); TROPONIN I 0.03 NG/ML (<0.05)
[2016-12-12 08:46] LABS: ALKALINE PHOSPHATASE 87 U/L (45-117); BUN (BLOOD UREA NITROGEN) 86 MG/DL (6-23); CO2 (CARBON DIOXIDE) 13 MMOL/L (24-34); CREATININE 1.46 MG/DL (0.70-1.30); GFR AFRICAN AMERICAN 65 ML/MIN (>=60); GFR NON AFRICAN AMERICAN 56 ML/MIN (>=60); GLUCOSE, SERUM 386 MG/DL (60-99); POTASSIUM, SERUM 6.3 MMOL/L (3.5-5.3)
[2016-12-12 09:29] LABS: ALLENS TEST Pos; DEVICE NC; HCO3 (ACTUAL BICARBONATE) 12.2 MEQ/L (23-27); HEMOBLOGIN CONTENT 10.2 G/DL (14-18); INSTRUMENT SERIAL # 8087; METHEMOGLOBIN 0.3 % (0-3); PCO2 (CO2 TENSION) 26 MMHG (35-45); PO2 (O2 TENSION) 66 MMHG (79-93); SAMPLE Arterial; pH 7.29 (7.37-7.43)
[2016-12-12] MEDS ORDERED: HEPA50006 SC (10:22)
[2016-12-12] MEDS ORDERED: VANCOMYCIN 125MG/5ML PO (10:24)
[2016-12-12 10:51] LABS: CALCIUM, SERUM 9.6 MG/DL (8.5-10.4); CHLORIDE, SERUM 116 MMOL/L (96-112); CREATININE 1.45 MG/DL (0.70-1.30); GFR AFRICAN AMERICAN 65 ML/MIN (>=60); GFR NON AFRICAN AMERICAN 56 ML/MIN (>=60); POTASSIUM, SERUM 5.2 MMOL/L (3.5-5.3); SODIUM, SERUM 143 MMOL/L (135-148)
[2016-12-12 10:52] LABS: BUN (BLOOD UREA NITROGEN) 80 MG/DL (6-23); CO2 (CARBON DIOXIDE) 13 MMOL/L (24-34); GLUCOSE, SERUM 284 MG/DL (60-99)
[2016-12-12 16:40] LABS: HEMATOCRIT 25.5 % (40.0-51.0); HEMOGLOBIN 8.4 g/dL (13.6-17.8); MEAN CORPUS HGB CONC 32.9 g/dL (32.0-36.0); MEAN CORPUSCULAR HEMOGLOB 27.6 pg (26.0-34.0); MEAN CORPUSCULAR VOLUME 83.9 fL (80-100); MEAN PLATELET VOLUME 10.9 fL (9.2-13.0); PLATELET COUNT 283 10/3/uL (150-400); RBC DISTRIBUTION WIDTH 18.9 % (12.0-16.0); RED CELL COUNT 3.04 10/6/uL (4.7-6.1); WHITE BLOOD CELLS 10.4 10/3/uL (4.5-10.5)
[2016-12-12 16:56] LABS: A/G RATIO 0.6 (0.7-1.9); ALBUMIN 2.4 G/DL (3.5-5.0); CHLORIDE, SERUM 119 MMOL/L (96-112); CREATININE 1.13 MG/DL (0.70-1.30); GFR AFRICAN AMERICAN 88 ML/MIN (>=60); GFR NON AFRICAN AMERICAN 76 ML/MIN (>=60); GLOBULIN 4.3 G/DL (2.5-4.1); POTASSIUM, SERUM 5.3 MMOL/L (3.5-5.3); SGOT(AST) 21 U/L (5-40); SGPT(ALT) 25 U/L (5-65); SODIUM, SERUM 145 MMOL/L (135-148); TOTAL BILIRUBIN 0.4 MG/DL (0-1.2); TOTAL PROTEIN 6.7 G/DL (6.0-8.5)
[2016-12-12 16:57] LABS: ALKALINE PHOSPHATASE 72 U/L (45-117); BUN (BLOOD UREA NITROGEN) 71 MG/DL (6-23); CO2 (CARBON DIOXIDE) 16 MMOL/L (24-34); GLUCOSE, SERUM 215 MG/DL (60-99)
[2016-12-12 23:47] LABS: HEMATOCRIT 25.5 % (40.0-51.0); HEMOGLOBIN 8.1 g/dL (13.6-17.8); MEAN CORPUS HGB CONC 31.8 g/dL (32.0-36.0); MEAN CORPUSCULAR HEMOGLOB 27.2 pg (26.0-34.0); MEAN CORPUSCULAR VOLUME 85.6 fL (80-100); MEAN PLATELET VOLUME 10.8 fL (9.2-13.0); PLATELET COUNT 228 10/3/uL (150-400); RBC DISTRIBUTION WIDTH 19.2 % (12.0-16.0); RED CELL COUNT 2.98 10/6/uL (4.7-6.1); WHITE BLOOD CELLS 8.3 10/3/uL (4.5-10.5)
[2016-12-12 23:48] LABS: MANUAL DIFF YES %
[2016-12-12 23:51] LABS: CALCIUM, SERUM 8.8 MG/DL (8.5-10.4); CHLORIDE, SERUM 118 MMOL/L (96-112); CREATININE 0.87 MG/DL (0.70-1.30); GFR AFRICAN AMERICAN 117 ML/MIN (>=60); GFR NON AFRICAN AMERICAN 101 ML/MIN (>=60); PHOSPHORUS, SERUM 3.1 MG/DL (2.5-4.5); SODIUM, SERUM 143 MMOL/L (135-148)
[2016-12-12 23:59] LABS: BUN (BLOOD UREA NITROGEN) 58 MG/DL (6-23); CO2 (CARBON DIOXIDE) 13 MMOL/L (24-34); GLUCOSE, SERUM 145 MG/DL (60-99)
[2016-12-13 00:16] LABS: BAND NEUTROPHILS 17 %; IMMATURE GRANS ABSOLUTE (CALC) 0.17 10/3/uL (0.0-0.11); LYMPHOCYTES 11 %; LYMPHOCYTES ABSOLUTE (CALC) 0.91 10/3/uL (0.67-4.30); METAMYELOCYTES 2 %; MONOCYTES 2 %; MONOCYTES ABSOLUTE (CALC) 0.17 10/3/uL (0.21-1.20); NEUTROPHILS ABSOLUTE (CALC) 7.06 10/3/uL (2.02-8.40); SEGMENTED NEUTROPHIL (0) 68 %; TOTAL NUCLEATED CELLS 100
[2016-12-13 00:17] LABS: ANISOCYTOSIS 1+ (5-10/OIF) (0-5/OIF); OVALOCYTES 1+ (3-10/OIF) (0-2/OIF); PLATELET ESTIMATE ADQ (ADEQUATE); POIKILOCYTOSIS 1+ (5-10/OIF) (0-5/OIF)
[2016-12-13 03:49] LABS: BASOPHILS 0.3 %; BASOPHILS ABSOLUTE 0.03 10/3/uL (0.0-0.16); EOSINOPHILS 0.1 %; EOSINOPHILS ABSOLUTE 0.01 10/3/uL (0.0-0.53); HEMATOCRIT 25.6 % (40.0-51.0); HEMOGLOBIN 8.3 g/dL (13.6-17.8); IMMATURE GRANULOCYTES 0.2 %; IMMATURE GRANULOCYTES ABSOLUTE 0.02 10/3/uL (0.0-0.11); LYMPHOCYTES 14.7 %; LYMPHOCYTES ABSOLUTE 1.51 10/3/uL (0.67-4.30); MEAN CORPUS HGB CONC 32.4 g/dL (32.0-36.0); MEAN CORPUSCULAR HEMOGLOB 27.5 pg (26.0-34.0); MEAN CORPUSCULAR VOLUME 84.8 fL (80-100); MEAN PLATELET VOLUME 10.8 fL (9.2-13.0); MONOCYTES 10.5 %; MONOCYTES ABSOLUTE 1.08 10/3/uL (0.21-1.20); NEUTROPHILS 74.2 %; NEUTROPHILS ABSOLUTE 7.62 10/3/uL (2.02-8.40); PLATELET COUNT 276 10/3/uL (150-400); RED CELL COUNT 3.02 10/6/uL (4.7-6.1); WHITE BLOOD CELLS 10.3 10/3/uL (4.5-10.5)
[2016-12-13 04:01] LABS: CALCIUM, SERUM 9.1 MG/DL (8.5-10.4); CHLORIDE, SERUM 116 MMOL/L (96-112); CREATININE 0.94 MG/DL (0.70-1.30); GFR AFRICAN AMERICAN 110 ML/MIN (>=60); GFR NON AFRICAN AMERICAN 95 ML/MIN (>=60); GLUCOSE, SERUM 139 MG/DL (60-99); SODIUM, SERUM 145 MMOL/L (135-148)
[2016-12-13 04:07] LABS: BUN (BLOOD UREA NITROGEN) 51 MG/DL (6-23); CO2 (CARBON DIOXIDE) 21 MMOL/L (24-34); TROPONIN I 0.06 NG/ML (<0.05)
[2016-12-13 04:13] LABS: MANUAL DIFF NO %
[2016-12-13 15:36] LABS: WBC (NOT ORDERED) (RFLEX) > 182 (0-5)
[2016-12-14 05:26] LABS: BASOPHILS 0.3 %; BASOPHILS ABSOLUTE 0.03 10/3/uL (0.0-0.16); EOSINOPHILS 0.5 %; EOSINOPHILS ABSOLUTE 0.06 10/3/uL (0.0-0.53); HEMATOCRIT 25.4 % (40.0-51.0); HEMOGLOBIN 8.6 g/dL (13.6-17.8); IMMATURE GRANULOCYTES 0.3 %; IMMATURE GRANULOCYTES ABSOLUTE 0.04 10/3/uL (0.0-0.11); LYMPHOCYTES 11.9 %; LYMPHOCYTES ABSOLUTE 1.36 10/3/uL (0.67-4.30); MEAN CORPUS HGB CONC 33.9 g/dL (32.0-36.0); MEAN CORPUSCULAR HEMOGLOB 28.6 pg (26.0-34.0); MEAN CORPUSCULAR VOLUME 84.4 fL (80-100); MEAN PLATELET VOLUME 11.2 fL (9.2-13.0); MONOCYTES 11.4 %; MONOCYTES ABSOLUTE 1.31 10/3/uL (0.21-1.20); NEUTROPHILS 75.6 %; NEUTROPHILS ABSOLUTE 8.66 10/3/uL (2.02-8.40); PLATELET COUNT 292 10/3/uL (150-400); RBC DISTRIBUTION WIDTH 18.9 % (12.0-16.0); RED CELL COUNT 3.01 10/6/uL (4.7-6.1); WHITE BLOOD CELLS 11.5 10/3/uL (4.5-10.5)
[2016-12-14 05:28] LABS: MANUAL DIFF NO %
[2016-12-14 05:35] LABS: ALBUMIN 2.4 G/DL (3.5-5.0); BUN (BLOOD UREA NITROGEN) 34 MG/DL (6-23); CALCIUM, SERUM 9.6 MG/DL (8.5-10.4); CHLORIDE, SERUM 114 MMOL/L (96-112); CO2 (CARBON DIOXIDE) 17 MMOL/L (24-34); CREATININE 0.76 MG/DL (0.70-1.30); GFR AFRICAN AMERICAN 124 ML/MIN (>=60); GFR NON AFRICAN AMERICAN 107 ML/MIN (>=60); GLUCOSE, SERUM 182 MG/DL (60-99); POTASSIUM, SERUM 4.4 MMOL/L (3.5-5.3); SODIUM, SERUM 143 MMOL/L (135-148)
[2016-12-15 05:32] LABS: ALBUMIN 2.2 G/DL (3.5-5.0); CALCIUM, SERUM 9.5 MG/DL (8.5-10.4); CHLORIDE, SERUM 113 MMOL/L (96-112); CO2 (CARBON DIOXIDE) 20 MMOL/L (24-34); CREATININE 0.72 MG/DL (0.70-1.30); GFR AFRICAN AMERICAN 127 ML/MIN (>=60); GFR NON AFRICAN AMERICAN 110 ML/MIN (>=60); GLUCOSE, SERUM 199 MG/DL (60-99); SODIUM, SERUM 144 MMOL/L (135-148); VANCOMYCIN TROUGH 20.5 MCG/ML (10.0-20.0)
[2016-12-15 05:35] LABS: BUN (BLOOD UREA NITROGEN) 28 MG/DL (6-23)
[2016-12-15 05:51] LABS: BASOPHILS 0.3 %; BASOPHILS ABSOLUTE 0.02 10/3/uL (0.0-0.16); EOSINOPHILS 1.3 %; HEMATOCRIT 26.3 % (40.0-51.0); HEMOGLOBIN 8.2 g/dL (13.6-17.8); IMMATURE GRANULOCYTES 0.4 %; IMMATURE GRANULOCYTES ABSOLUTE 0.03 10/3/uL (0.0-0.11); LYMPHOCYTES 21.1 %; LYMPHOCYTES ABSOLUTE 1.62 10/3/uL (0.67-4.30); MEAN CORPUSCULAR HEMOGLOB 26.1 pg (26.0-34.0); MEAN CORPUSCULAR VOLUME 83.8 fL (80-100); MEAN PLATELET VOLUME 10.9 fL (9.2-13.0); MONOCYTES 10.3 %; MONOCYTES ABSOLUTE 0.79 10/3/uL (0.21-1.20); NEUTROPHILS 66.6 %; NEUTROPHILS ABSOLUTE 5.13 10/3/uL (2.02-8.40); PLATELET COUNT 347 10/3/uL (150-400); RBC DISTRIBUTION WIDTH 18.8 % (12.0-16.0); RED CELL COUNT 3.14 10/6/uL (4.7-6.1); WHITE BLOOD CELLS 7.7 10/3/uL (4.5-10.5)
[2016-12-15 05:56] LABS: MANUAL DIFF NO %; MEAN CORPUS HGB CONC 31.2 g/dL (32.0-36.0)
[2016-12-16 07:31] LABS: BASOPHILS 0.3 %; BASOPHILS ABSOLUTE 0.02 10/3/uL (0.0-0.16); EOSINOPHILS 1.7 %; EOSINOPHILS ABSOLUTE 0.11 10/3/uL (0.0-0.53); HEMATOCRIT 25.9 % (40.0-51.0); HEMOGLOBIN 8.2 g/dL (13.6-17.8); IMMATURE GRANULOCYTES 0.3 %; IMMATURE GRANULOCYTES ABSOLUTE 0.02 10/3/uL (0.0-0.11); LYMPHOCYTES 23.8 %; LYMPHOCYTES ABSOLUTE 1.53 10/3/uL (0.67-4.30); MANUAL DIFF NO %; MEAN CORPUS HGB CONC 31.7 g/dL (32.0-36.0); MEAN CORPUSCULAR HEMOGLOB 26.3 pg (26.0-34.0); MEAN PLATELET VOLUME 10.8 fL (9.2-13.0); MONOCYTES 14.5 %; MONOCYTES ABSOLUTE 0.93 10/3/uL (0.21-1.20); NEUTROPHILS 59.4 %; NEUTROPHILS ABSOLUTE 3.81 10/3/uL (2.02-8.40); PLATELET COUNT 342 10/3/uL (150-400); RBC DISTRIBUTION WIDTH 18.6 % (12.0-16.0); RED CELL COUNT 3.12 10/6/uL (4.7-6.1); WHITE BLOOD CELLS 6.4 10/3/uL (4.5-10.5)
[2016-12-17 06:50] LABS: BASOPHILS 0.7 %; BASOPHILS ABSOLUTE 0.04 10/3/uL (0.0-0.16); EOSINOPHILS 2.3 %; EOSINOPHILS ABSOLUTE 0.14 10/3/uL (0.0-0.53); HEMOGLOBIN 9.1 g/dL (13.6-17.8); IMMATURE GRANULOCYTES 0.3 %; IMMATURE GRANULOCYTES ABSOLUTE 0.02 10/3/uL (0.0-0.11); LYMPHOCYTES 24.1 %; LYMPHOCYTES ABSOLUTE 1.46 10/3/uL (0.67-4.30); MANUAL DIFF NO %; MEAN CORPUS HGB CONC 32.5 g/dL (32.0-36.0); MEAN CORPUSCULAR HEMOGLOB 27.5 pg (26.0-34.0); MEAN CORPUSCULAR VOLUME 84.6 fL (80-100); MEAN PLATELET VOLUME 10.1 fL (9.2-13.0); MONOCYTES 8.4 %; MONOCYTES ABSOLUTE 0.51 10/3/uL (0.21-1.20); NEUTROPHILS 64.2 %; NEUTROPHILS ABSOLUTE 3.88 10/3/uL (2.02-8.40); PLATELET COUNT 365 10/3/uL (150-400); RBC DISTRIBUTION WIDTH 18.3 % (12.0-16.0); RED CELL COUNT 3.31 10/6/uL (4.7-6.1); WHITE BLOOD CELLS 6.1 10/3/uL (4.5-10.5)
[2016-12-17 06:57] LABS: CALCIUM, SERUM 8.7 MG/DL (8.5-10.4); CHLORIDE, SERUM 109 MMOL/L (96-112); CO2 (CARBON DIOXIDE) 19 MMOL/L (24-34); CREATININE 0.62 MG/DL (0.70-1.30); GFR AFRICAN AMERICAN 135 ML/MIN (>=60); GFR NON AFRICAN AMERICAN 116 ML/MIN (>=60); SODIUM, SERUM 139 MMOL/L (135-148)
[2016-12-17 06:59] LABS: BUN (BLOOD UREA NITROGEN) 16 MG/DL (6-23); GLUCOSE, SERUM 262 MG/DL (60-99)
[2016-12-18 04:38] LABS: BASOPHILS 0.6 %; BASOPHILS ABSOLUTE 0.03 10/3/uL (0.0-0.16); EOSINOPHILS ABSOLUTE 0.21 10/3/uL (0.0-0.53); HEMOGLOBIN 8.3 g/dL (13.6-17.8); IMMATURE GRANULOCYTES 0.8 %; IMMATURE GRANULOCYTES ABSOLUTE 0.04 10/3/uL (0.0-0.11); LYMPHOCYTES 33.4 %; LYMPHOCYTES ABSOLUTE 1.75 10/3/uL (0.67-4.30); MEAN CORPUS HGB CONC 31.9 g/dL (32.0-36.0); MEAN CORPUSCULAR HEMOGLOB 26.3 pg (26.0-34.0); MEAN CORPUSCULAR VOLUME 82.5 fL (80-100); MEAN PLATELET VOLUME 9.9 fL (9.2-13.0); MONOCYTES 8.2 %; MONOCYTES ABSOLUTE 0.43 10/3/uL (0.21-1.20); NEUTROPHILS ABSOLUTE 2.78 10/3/uL (2.02-8.40); PLATELET COUNT 396 10/3/uL (150-400); RBC DISTRIBUTION WIDTH 18.5 % (12.0-16.0); RED CELL COUNT 3.15 10/6/uL (4.7-6.1); WHITE BLOOD CELLS 5.2 10/3/uL (4.5-10.5)
[2016-12-18 04:39] LABS: MANUAL DIFF NO %
[2016-12-18 04:55] LABS: BUN (BLOOD UREA NITROGEN) 15 MG/DL (6-23); CALCIUM, SERUM 9.1 MG/DL (8.5-10.4); CHLORIDE, SERUM 111 MMOL/L (96-112); CO2 (CARBON DIOXIDE) 19 MMOL/L (24-34); CREATININE 0.66 MG/DL (0.70-1.30); GFR AFRICAN AMERICAN 132 ML/MIN (>=60); GFR NON AFRICAN AMERICAN 114 ML/MIN (>=60); GLUCOSE, SERUM 210 MG/DL (60-99); POTASSIUM, SERUM 4.3 MMOL/L (3.5-5.3); SODIUM, SERUM 140 MMOL/L (135-148); VANCOMYCIN TROUGH 14.5 MCG/ML (10.0-20.0)
[2016-12-21 13:18] LABS: BASOPHILS 0.4 %; BASOPHILS ABSOLUTE 0.02 10/3/uL (0.0-0.16); EOSINOPHILS 2.6 %; EOSINOPHILS ABSOLUTE 0.13 10/3/uL (0.0-0.53); HEMATOCRIT 27.5 % (40.0-51.0); HEMOGLOBIN 8.9 g/dL (13.6-17.8); IMMATURE GRANULOCYTES 0.6 %; IMMATURE GRANULOCYTES ABSOLUTE 0.03 10/3/uL (0.0-0.11); LYMPHOCYTES 31.6 %; LYMPHOCYTES ABSOLUTE 1.61 10/3/uL (0.67-4.30); MANUAL DIFF NO %; MEAN CORPUS HGB CONC 32.4 g/dL (32.0-36.0); MEAN CORPUSCULAR VOLUME 83.3 fL (80-100); MEAN PLATELET VOLUME 9.2 fL (9.2-13.0); MONOCYTES 6.7 %; MONOCYTES ABSOLUTE 0.34 10/3/uL (0.21-1.20); NEUTROPHILS 58.1 %; NEUTROPHILS ABSOLUTE 2.96 10/3/uL (2.02-8.40); PLATELET COUNT 538 10/3/uL (150-400); RBC DISTRIBUTION WIDTH 18.4 % (12.0-16.0); WHITE BLOOD CELLS 5.1 10/3/uL (4.5-10.5)
[2016-12-21 13:31] LABS: BUN (BLOOD UREA NITROGEN) 12 MG/DL (6-23); CALCIUM, SERUM 8.8 MG/DL (8.5-10.4); CHLORIDE, SERUM 106 MMOL/L (96-112); CO2 (CARBON DIOXIDE) 18 MMOL/L (24-34); CREATININE 0.83 MG/DL (0.70-1.30); GFR AFRICAN AMERICAN 120 ML/MIN (>=60); GFR NON AFRICAN AMERICAN 103 ML/MIN (>=60); GLUCOSE, SERUM 250 MG/DL (60-99); POTASSIUM, SERUM 4.6 MMOL/L (3.5-5.3); SODIUM, SERUM 134 MMOL/L (135-148)
[2016-12-25 06:08] LABS: BASOPHILS 0.3 %; BASOPHILS ABSOLUTE 0.03 10/3/uL (0.0-0.16); EOSINOPHILS 2.7 %; EOSINOPHILS ABSOLUTE 0.27 10/3/uL (0.0-0.53); HEMOGLOBIN 10.1 g/dL (13.6-17.8); IMMATURE GRANULOCYTES 0.3 %; IMMATURE GRANULOCYTES ABSOLUTE 0.03 10/3/uL (0.0-0.11); LYMPHOCYTES 17.4 %; LYMPHOCYTES ABSOLUTE 1.72 10/3/uL (0.67-4.30); MEAN CORPUS HGB CONC 32.4 g/dL (32.0-36.0); MEAN CORPUSCULAR HEMOGLOB 27.4 pg (26.0-34.0); MEAN CORPUSCULAR VOLUME 84.8 fL (80-100); MEAN PLATELET VOLUME 9.5 fL (9.2-13.0); MONOCYTES 5.3 %; MONOCYTES ABSOLUTE 0.52 10/3/uL (0.21-1.20); PLATELET COUNT 588 10/3/uL (150-400); RBC DISTRIBUTION WIDTH 19.1 % (12.0-16.0); RED CELL COUNT 3.68 10/6/uL (4.7-6.1)
[2016-12-25 06:27] LABS: HEMATOCRIT 31.2 % (40.0-51.0); MANUAL DIFF NO %; WHITE BLOOD CELLS 9.9 10/3/uL (4.5-10.5)
[2016-12-25 09:28] LABS: CHLORIDE, SERUM 104 MMOL/L (96-112); CO2 (CARBON DIOXIDE) 17 MMOL/L (24-34); SODIUM, SERUM 129 MMOL/L (135-148)
[2016-12-25 09:35] LABS: BUN (BLOOD UREA NITROGEN) 23 MG/DL (6-23); CALCIUM, SERUM 9.8 MG/DL (8.5-10.4); CREATININE 1.51 MG/DL (0.70-1.30); GFR AFRICAN AMERICAN 62 ML/MIN (>=60); GFR NON AFRICAN AMERICAN 53 ML/MIN (>=60); GLUCOSE, SERUM 127 MG/DL (60-99)
[2016-12-26 13:53] LABS: BUN (BLOOD UREA NITROGEN) 29 MG/DL (6-23); CALCIUM, SERUM 9.9 MG/DL (8.5-10.4); CHLORIDE, SERUM 103 MMOL/L (96-112); CO2 (CARBON DIOXIDE) 13 MMOL/L (24-34); CREATININE 1.89 MG/DL (0.70-1.30); GFR AFRICAN AMERICAN 47 ML/MIN (>=60); GFR NON AFRICAN AMERICAN 41 ML/MIN (>=60); GLUCOSE, SERUM 220 MG/DL (60-99); POTASSIUM, SERUM 6.5 MMOL/L (3.5-5.3); SODIUM, SERUM 129 MMOL/L (135-148)
[2016-12-27 06:20] LABS: BUN (BLOOD UREA NITROGEN) 32 MG/DL (6-23); CALCIUM, SERUM 9.9 MG/DL (8.5-10.4); CHLORIDE, SERUM 104 MMOL/L (96-112); CREATININE 2.02 MG/DL (0.70-1.30); GFR AFRICAN AMERICAN 44 ML/MIN (>=60); GFR NON AFRICAN AMERICAN 38 ML/MIN (>=60); POTASSIUM, SERUM 5.2 MMOL/L (3.5-5.3); SODIUM, SERUM 131 MMOL/L (135-148)
[2016-12-27 06:21] LABS: CO2 (CARBON DIOXIDE) 16 MMOL/L (24-34); GLUCOSE, SERUM 87 MG/DL (60-99)
[2016-12-28 06:34] LABS: BUN (BLOOD UREA NITROGEN) 34 MG/DL (6-23); CALCIUM, SERUM 9.9 MG/DL (8.5-10.4); CHLORIDE, SERUM 103 MMOL/L (96-112); CO2 (CARBON DIOXIDE) 15 MMOL/L (24-34); CREATININE 2.23 MG/DL (0.70-1.30); GFR AFRICAN AMERICAN 39 ML/MIN (>=60); GFR NON AFRICAN AMERICAN 33 ML/MIN (>=60); GLUCOSE, SERUM 47 MG/DL (60-99); POTASSIUM, SERUM 4.9 MMOL/L (3.5-5.3); SODIUM, SERUM 129 MMOL/L (135-148)
[2016-12-29 06:19] LABS: BUN (BLOOD UREA NITROGEN) 35 MG/DL (6-23); CALCIUM, SERUM 9.6 MG/DL (8.5-10.4); CHLORIDE, SERUM 102 MMOL/L (96-112); CREATININE 2.52 MG/DL (0.70-1.30); GFR AFRICAN AMERICAN 33 ML/MIN (>=60); GFR NON AFRICAN AMERICAN 29 ML/MIN (>=60); SODIUM, SERUM 129 MMOL/L (135-148)
[2016-12-29 06:20] LABS: CO2 (CARBON DIOXIDE) 14 MMOL/L (24-34); GLUCOSE, SERUM 209 MG/DL (60-99)
[2016-12-29 15:26] LABS: CREATININE, URINE 42.2 MG/DL
[2016-12-30 06:06] LABS: BASOPHILS ABSOLUTE 0.05 10/3/uL (0.0-0.16); EOSINOPHILS 3.3 %; EOSINOPHILS ABSOLUTE 0.16 10/3/uL (0.0-0.53); HEMATOCRIT 29.2 % (40.0-51.0); HEMOGLOBIN 9.7 g/dL (13.6-17.8); LYMPHOCYTES ABSOLUTE 1.77 10/3/uL (0.67-4.30); MEAN CORPUS HGB CONC 33.2 g/dL (32.0-36.0); MEAN CORPUSCULAR HEMOGLOB 27.8 pg (26.0-34.0); MEAN CORPUSCULAR VOLUME 83.7 fL (80-100); MEAN PLATELET VOLUME 9.8 fL (9.2-13.0); MONOCYTES 10.4 %; MONOCYTES ABSOLUTE 0.51 10/3/uL (0.21-1.20); NEUTROPHILS 49.3 %; NEUTROPHILS ABSOLUTE 2.43 10/3/uL (2.02-8.40); PLATELET COUNT 559 10/3/uL (150-400); RBC DISTRIBUTION WIDTH 18.5 % (12.0-16.0); RED CELL COUNT 3.49 10/6/uL (4.7-6.1)
[2016-12-30 06:07] LABS: MANUAL DIFF NO %; WHITE BLOOD CELLS 4.9 10/3/uL (4.5-10.5)
[2016-12-30 06:16] LABS: CALCIUM, SERUM 9.8 MG/DL (8.5-10.4); CHLORIDE, SERUM 102 MMOL/L (96-112); CREATININE 2.84 MG/DL (0.70-1.30); GFR AFRICAN AMERICAN 29 ML/MIN (>=60); GFR NON AFRICAN AMERICAN 25 ML/MIN (>=60); PHOSPHORUS, SERUM 3.8 MG/DL (2.5-4.5); POTASSIUM, SERUM 5.4 MMOL/L (3.5-5.3); SODIUM, SERUM 130 MMOL/L (135-148)
[2016-12-30 06:17] LABS: ALBUMIN 2.9 G/DL (3.5-5.0); BUN (BLOOD UREA NITROGEN) 39 MG/DL (6-23); CO2 (CARBON DIOXIDE) 19 MMOL/L (24-34); GLUCOSE, SERUM 114 MG/DL (60-99)
[2016-12-31 01:07] LABS: ASCORBIC ACID (UR NOT ORDER) 20 (NEG); BILIRUBIN, URINE NEGATIVE (NEG); KETONE, URINE NEGATIVE (NEG); LEUKOCYTE ESTERASE(NOT OR LARGE (NEG); WBC (NOT ORDERED) (RFLEX) 39 (0-5)
[2016-12-31 07:50] LABS: BASOPHILS 1.2 %; BASOPHILS ABSOLUTE 0.05 10/3/uL (0.0-0.16); EOSINOPHILS 2.6 %; EOSINOPHILS ABSOLUTE 0.11 10/3/uL (0.0-0.53); HEMATOCRIT 27.4 % (40.0-51.0); HEMOGLOBIN 9.2 g/dL (13.6-17.8); LYMPHOCYTES 40.8 %; LYMPHOCYTES ABSOLUTE 1.73 10/3/uL (0.67-4.30); MEAN CORPUS HGB CONC 33.6 g/dL (32.0-36.0); MEAN CORPUSCULAR VOLUME 83.3 fL (80-100); MONOCYTES 10.1 %; MONOCYTES ABSOLUTE 0.43 10/3/uL (0.21-1.20); NEUTROPHILS 45.3 %; NEUTROPHILS ABSOLUTE 1.92 10/3/uL (2.02-8.40); PLATELET COUNT 498 10/3/uL (150-400); RBC DISTRIBUTION WIDTH 18.5 % (12.0-16.0); RED CELL COUNT 3.29 10/6/uL (4.7-6.1); WHITE BLOOD CELLS 4.2 10/3/uL (4.5-10.5)
[2016-12-31 07:52] LABS: MANUAL DIFF NO %
[2016-12-31 08:04] LABS: ALBUMIN 2.9 G/DL (3.5-5.0); BUN (BLOOD UREA NITROGEN) 40 MG/DL (6-23); CALCIUM, SERUM 9.3 MG/DL (8.5-10.4); CHLORIDE, SERUM 100 MMOL/L (96-112); CO2 (CARBON DIOXIDE) 21 MMOL/L (24-34); CREATININE 2.83 MG/DL (0.70-1.30); GFR AFRICAN AMERICAN 29 ML/MIN (>=60); GFR NON AFRICAN AMERICAN 25 ML/MIN (>=60); GLUCOSE, SERUM 131 MG/DL (60-99); PHOSPHORUS, SERUM 3.4 MG/DL (2.5-4.5); POTASSIUM, SERUM 5.1 MMOL/L (3.5-5.3); SODIUM, SERUM 130 MMOL/L (135-148)
[2016-12-31 09:38] LABS: PROCALCITONIN <0.05 ng/mL (<0.5)
[2017-01-01 05:39] LABS: BASOPHILS 1.4 %; BASOPHILS ABSOLUTE 0.06 10/3/uL (0.0-0.16); EOSINOPHILS ABSOLUTE 0.21 10/3/uL (0.0-0.53); HEMOGLOBIN 9.2 g/dL (13.6-17.8); LYMPHOCYTES 49.8 %; LYMPHOCYTES ABSOLUTE 2.09 10/3/uL (0.67-4.30); MEAN CORPUS HGB CONC 32.9 g/dL (32.0-36.0); MEAN CORPUSCULAR HEMOGLOB 27.1 pg (26.0-34.0); MEAN CORPUSCULAR VOLUME 82.6 fL (80-100); MEAN PLATELET VOLUME 9.8 fL (9.2-13.0); MONOCYTES 7.4 %; MONOCYTES ABSOLUTE 0.31 10/3/uL (0.21-1.20); NEUTROPHILS 36.4 %; NEUTROPHILS ABSOLUTE 1.53 10/3/uL (2.02-8.40); PLATELET COUNT 469 10/3/uL (150-400); RBC DISTRIBUTION WIDTH 18.5 % (12.0-16.0); RED CELL COUNT 3.39 10/6/uL (4.7-6.1); WHITE BLOOD CELLS 4.2 10/3/uL (4.5-10.5)
[2017-01-01 05:41] LABS: MANUAL DIFF NO %
[2017-01-01 05:54] LABS: ALBUMIN 2.8 G/DL (3.5-5.0); BUN (BLOOD UREA NITROGEN) 41 MG/DL (6-23); CALCIUM, SERUM 9.6 MG/DL (8.5-10.4); CHLORIDE, SERUM 102 MMOL/L (96-112); CO2 (CARBON DIOXIDE) 20 MMOL/L (24-34); CREATININE 2.93 MG/DL (0.70-1.30); GFR AFRICAN AMERICAN 28 ML/MIN (>=60); GFR NON AFRICAN AMERICAN 24 ML/MIN (>=60); PHOSPHORUS, SERUM 3.7 MG/DL (2.5-4.5); POTASSIUM, SERUM 5.1 MMOL/L (3.5-5.3); SODIUM, SERUM 131 MMOL/L (135-148)
[2017-01-01 05:55] LABS: GLUCOSE, SERUM 101 MG/DL (60-99)
[2017-01-02 06:01] LABS: BUN (BLOOD UREA NITROGEN) 40 MG/DL (6-23); CALCIUM, SERUM 9.8 MG/DL (8.5-10.4); CHLORIDE, SERUM 106 MMOL/L (96-112); CREATININE 2.92 MG/DL (0.70-1.30); GFR AFRICAN AMERICAN 28 ML/MIN (>=60); GFR NON AFRICAN AMERICAN 24 ML/MIN (>=60); GLUCOSE, SERUM 117 MG/DL (60-99); POTASSIUM, SERUM 5.6 MMOL/L (3.5-5.3); SODIUM, SERUM 132 MMOL/L (135-148)
[2017-01-02 06:05] LABS: CO2 (CARBON DIOXIDE) 16 MMOL/L (24-34)
[2017-01-02 14:37] LABS: BUN (BLOOD UREA NITROGEN) 37 MG/DL (6-23); CALCIUM, SERUM 9.2 MG/DL (8.5-10.4); CHLORIDE, SERUM 102 MMOL/L (96-112); CO2 (CARBON DIOXIDE) 22 MMOL/L (24-34); CREATININE 3.06 MG/DL (0.70-1.30); GFR AFRICAN AMERICAN 26 ML/MIN (>=60); GFR NON AFRICAN AMERICAN 23 ML/MIN (>=60); GLUCOSE, SERUM 193 MG/DL (60-99); POTASSIUM, SERUM 5.5 MMOL/L (3.5-5.3); SODIUM, SERUM 133 MMOL/L (135-148)
[2017-01-03 06:00] LABS: BASOPHILS 0.9 %; BASOPHILS ABSOLUTE 0.03 10/3/uL (0.0-0.16); EOSINOPHILS 3.4 %; EOSINOPHILS ABSOLUTE 0.11 10/3/uL (0.0-0.53); HEMATOCRIT 28.3 % (40.0-51.0); HEMOGLOBIN 9.3 g/dL (13.6-17.8); LYMPHOCYTES 47.7 %; LYMPHOCYTES ABSOLUTE 1.55 10/3/uL (0.67-4.30); MANUAL DIFF NO %; MEAN CORPUS HGB CONC 32.9 g/dL (32.0-36.0); MEAN CORPUSCULAR HEMOGLOB 27.4 pg (26.0-34.0); MEAN CORPUSCULAR VOLUME 83.5 fL (80-100); MEAN PLATELET VOLUME 10.3 fL (9.2-13.0); MONOCYTES 9.8 %; MONOCYTES ABSOLUTE 0.32 10/3/uL (0.21-1.20); NEUTROPHILS 38.2 %; NEUTROPHILS ABSOLUTE 1.24 10/3/uL (2.02-8.40); PLATELET COUNT 402 10/3/uL (150-400); RBC DISTRIBUTION WIDTH 18.2 % (12.0-16.0); RED CELL COUNT 3.39 10/6/uL (4.7-6.1); WHITE BLOOD CELLS 3.3 10/3/uL (4.5-10.5)
[2017-01-03 06:13] LABS: ALBUMIN 2.9 G/DL (3.5-5.0); BUN (BLOOD UREA NITROGEN) 34 MG/DL (6-23); CALCIUM, SERUM 9.3 MG/DL (8.5-10.4); CHLORIDE, SERUM 101 MMOL/L (96-112); CO2 (CARBON DIOXIDE) 22 MMOL/L (24-34); CREATININE 2.94 MG/DL (0.70-1.30); GFR AFRICAN AMERICAN 28 ML/MIN (>=60); GFR NON AFRICAN AMERICAN 24 ML/MIN (>=60); GLUCOSE, SERUM 190 MG/DL (60-99); PHOSPHORUS, SERUM 3.7 MG/DL (2.5-4.5); POTASSIUM, SERUM 5.1 MMOL/L (3.5-5.3); SODIUM, SERUM 132 MMOL/L (135-148)
[2017-01-04 08:12] LABS: ALBUMIN 2.8 G/DL (3.5-5.0); BUN (BLOOD UREA NITROGEN) 32 MG/DL (6-23); CALCIUM, SERUM 9.3 MG/DL (8.5-10.4); CHLORIDE, SERUM 102 MMOL/L (96-112); CO2 (CARBON DIOXIDE) 22 MMOL/L (24-34); CREATININE 2.98 MG/DL (0.70-1.30); GFR AFRICAN AMERICAN 27 ML/MIN (>=60); GFR NON AFRICAN AMERICAN 24 ML/MIN (>=60); PHOSPHORUS, SERUM 3.5 MG/DL (2.5-4.5); POTASSIUM, SERUM 5.1 MMOL/L (3.5-5.3); SODIUM, SERUM 133 MMOL/L (135-148)
[2017-01-04 08:13] LABS: GLUCOSE, SERUM 128 MG/DL (60-99)
[2017-01-05 06:17] LABS: ALBUMIN 2.7 G/DL (3.5-5.0); CALCIUM, SERUM 9.1 MG/DL (8.5-10.4); CHLORIDE, SERUM 97 MMOL/L (96-112); CO2 (CARBON DIOXIDE) 24 MMOL/L (24-34); CREATININE 2.78 MG/DL (0.70-1.30); GFR AFRICAN AMERICAN 30 ML/MIN (>=60); GFR NON AFRICAN AMERICAN 26 ML/MIN (>=60); GLUCOSE, SERUM 109 MG/DL (60-99); PHOSPHORUS, SERUM 3.1 MG/DL (2.5-4.5); SODIUM, SERUM 131 MMOL/L (135-148)
[2017-01-05 06:18] LABS: BUN (BLOOD UREA NITROGEN) 28 MG/DL (6-23)
[2017-01-05 10:35] LABS: BASOPHILS 0.4 %; BASOPHILS ABSOLUTE 0.03 10/3/uL (0.0-0.16); EOSINOPHILS 2.6 %; EOSINOPHILS ABSOLUTE 0.19 10/3/uL (0.0-0.53); HEMOGLOBIN 7.9 g/dL (13.6-17.8); IMMATURE GRANULOCYTES 0.3 %; IMMATURE GRANULOCYTES ABSOLUTE 0.02 10/3/uL (0.0-0.11); LYMPHOCYTES 20.7 %; MEAN CORPUS HGB CONC 32.6 g/dL (32.0-36.0); MEAN CORPUSCULAR HEMOGLOB 27.4 pg (26.0-34.0); MEAN PLATELET VOLUME 9.8 fL (9.2-13.0); MONOCYTES 11.3 %; MONOCYTES ABSOLUTE 0.82 10/3/uL (0.21-1.20); NEUTROPHILS 64.7 %; NEUTROPHILS ABSOLUTE 4.69 10/3/uL (2.02-8.40); PLATELET COUNT 354 10/3/uL (150-400); RED CELL COUNT 2.88 10/6/uL (4.7-6.1)
[2017-01-05 10:41] LABS: HEMATOCRIT 24.2 % (40.0-51.0); MANUAL DIFF NO %; WHITE BLOOD CELLS 7.3 10/3/uL (4.5-10.5)
[2017-01-06 09:17] LABS: BASOPHILS 0.3 %; BASOPHILS ABSOLUTE 0.02 10/3/uL (0.0-0.16); EOSINOPHILS 1.1 %; EOSINOPHILS ABSOLUTE 0.08 10/3/uL (0.0-0.53); HEMATOCRIT 23.9 % (40.0-51.0); IMMATURE GRANULOCYTES 0.1 %; IMMATURE GRANULOCYTES ABSOLUTE 0.01 10/3/uL (0.0-0.11); LYMPHOCYTES 16.6 %; LYMPHOCYTES ABSOLUTE 1.24 10/3/uL (0.67-4.30); MEAN CORPUS HGB CONC 33.5 g/dL (32.0-36.0); MEAN CORPUSCULAR VOLUME 83.6 fL (80-100); MEAN PLATELET VOLUME 9.7 fL (9.2-13.0); MONOCYTES 11.8 %; MONOCYTES ABSOLUTE 0.88 10/3/uL (0.21-1.20); NEUTROPHILS 70.1 %; NEUTROPHILS ABSOLUTE 5.22 10/3/uL (2.02-8.40); PLATELET COUNT 317 10/3/uL (150-400); RBC DISTRIBUTION WIDTH 17.8 % (12.0-16.0); RED CELL COUNT 2.86 10/6/uL (4.7-6.1); WHITE BLOOD CELLS 7.5 10/3/uL (4.5-10.5)
[2017-01-06 09:30] LABS: ALBUMIN 2.6 G/DL (3.5-5.0); CHLORIDE, SERUM 96 MMOL/L (96-112); CO2 (CARBON DIOXIDE) 25 MMOL/L (24-34); GFR AFRICAN AMERICAN 23 ML/MIN (>=60); GFR NON AFRICAN AMERICAN 20 ML/MIN (>=60); GLUCOSE, SERUM 127 MG/DL (60-99); MANUAL DIFF NO %; POTASSIUM, SERUM 5.2 MMOL/L (3.5-5.3); SODIUM, SERUM 128 MMOL/L (135-148)
[2017-01-06 09:36] LABS: BUN (BLOOD UREA NITROGEN) 32 MG/DL (6-23); CREATININE 3.41 MG/DL (0.70-1.30)
[2017-01-07 06:13] LABS: BASOPHILS 0.2 %; BASOPHILS ABSOLUTE 0.01 10/3/uL (0.0-0.16); EOSINOPHILS 3.3 %; EOSINOPHILS ABSOLUTE 0.16 10/3/uL (0.0-0.53); HEMATOCRIT 22.6 % (40.0-51.0); HEMOGLOBIN 7.7 g/dL (13.6-17.8); IMMATURE GRANULOCYTES 0.2 %; IMMATURE GRANULOCYTES ABSOLUTE 0.01 10/3/uL (0.0-0.11); LYMPHOCYTES 34.4 %; LYMPHOCYTES ABSOLUTE 1.67 10/3/uL (0.67-4.30); MEAN CORPUS HGB CONC 34.1 g/dL (32.0-36.0); MEAN CORPUSCULAR HEMOGLOB 28.3 pg (26.0-34.0); MEAN CORPUSCULAR VOLUME 83.1 fL (80-100); MEAN PLATELET VOLUME 10.1 fL (9.2-13.0); MONOCYTES 7.8 %; MONOCYTES ABSOLUTE 0.38 10/3/uL (0.21-1.20); NEUTROPHILS 54.1 %; NEUTROPHILS ABSOLUTE 2.63 10/3/uL (2.02-8.40); PLATELET COUNT 289 10/3/uL (150-400); RED CELL COUNT 2.72 10/6/uL (4.7-6.1); WHITE BLOOD CELLS 4.9 10/3/uL (4.5-10.5)
[2017-01-07 06:15] LABS: MANUAL DIFF NO %
[2017-01-07 06:28] LABS: ALBUMIN 2.6 G/DL (3.5-5.0); BUN (BLOOD UREA NITROGEN) 29 MG/DL (6-23); CALCIUM, SERUM 9.2 MG/DL (8.5-10.4); CHLORIDE, SERUM 92 MMOL/L (96-112); CO2 (CARBON DIOXIDE) 23 MMOL/L (24-34); CREATININE 3.37 MG/DL (0.70-1.30); GFR AFRICAN AMERICAN 23 ML/MIN (>=60); GFR NON AFRICAN AMERICAN 20 ML/MIN (>=60); PHOSPHORUS, SERUM 3.3 MG/DL (2.5-4.5); POTASSIUM, SERUM 4.6 MMOL/L (3.5-5.3); SODIUM, SERUM 128 MMOL/L (135-148)
[2017-01-07 06:31] LABS: GLUCOSE, SERUM 198 MG/DL (60-99)
[2017-01-08 07:12] LABS: BASOPHILS 0.4 %; BASOPHILS ABSOLUTE 0.02 10/3/uL (0.0-0.16); EOSINOPHILS 5.4 %; EOSINOPHILS ABSOLUTE 0.26 10/3/uL (0.0-0.53); HEMATOCRIT 23.1 % (40.0-51.0); HEMOGLOBIN 7.8 g/dL (13.6-17.8); IMMATURE GRANULOCYTES 0.2 %; IMMATURE GRANULOCYTES ABSOLUTE 0.01 10/3/uL (0.0-0.11); LYMPHOCYTES 33.7 %; LYMPHOCYTES ABSOLUTE 1.61 10/3/uL (0.67-4.30); MEAN CORPUS HGB CONC 33.8 g/dL (32.0-36.0); MEAN CORPUSCULAR HEMOGLOB 28.1 pg (26.0-34.0); MEAN CORPUSCULAR VOLUME 83.1 fL (80-100); MEAN PLATELET VOLUME 9.6 fL (9.2-13.0); MONOCYTES 10.9 %; MONOCYTES ABSOLUTE 0.52 10/3/uL (0.21-1.20); NEUTROPHILS 49.4 %; NEUTROPHILS ABSOLUTE 2.36 10/3/uL (2.02-8.40); PLATELET COUNT 261 10/3/uL (150-400); RBC DISTRIBUTION WIDTH 17.4 % (12.0-16.0); RED CELL COUNT 2.78 10/6/uL (4.7-6.1); WHITE BLOOD CELLS 4.8 10/3/uL (4.5-10.5)
[2017-01-08 07:13] LABS: MANUAL DIFF NO %
[2017-01-08 07:21] LABS: ALBUMIN 2.6 G/DL (3.5-5.0); BUN (BLOOD UREA NITROGEN) 29 MG/DL (6-23); CALCIUM, SERUM 9.1 MG/DL (8.5-10.4); CHLORIDE, SERUM 93 MMOL/L (96-112); CO2 (CARBON DIOXIDE) 28 MMOL/L (24-34); CREATININE 3.09 MG/DL (0.70-1.30); GFR AFRICAN AMERICAN 26 ML/MIN (>=60); GFR NON AFRICAN AMERICAN 22 ML/MIN (>=60); GLUCOSE, SERUM 101 MG/DL (60-99); PHOSPHORUS, SERUM 3.2 MG/DL (2.5-4.5); POTASSIUM, SERUM 4.6 MMOL/L (3.5-5.3); SODIUM, SERUM 130 MMOL/L (135-148)
[2017-01-09 06:48] LABS: PARTIAL THROMBO TIME 28.9 SEC (22.5-37.2); PROTIME (NOT ORD) 13.5 SEC (12.0-14.5)
[2017-01-09 06:55] LABS: ALBUMIN 2.7 G/DL (3.5-5.0); BUN (BLOOD UREA NITROGEN) 29 MG/DL (6-23); CALCIUM, SERUM 9.2 MG/DL (8.5-10.4); CHLORIDE, SERUM 100 MMOL/L (96-112); CO2 (CARBON DIOXIDE) 24 MMOL/L (24-34); CREATININE 3.28 MG/DL (0.70-1.30); GFR AFRICAN AMERICAN 24 ML/MIN (>=60); GFR NON AFRICAN AMERICAN 21 ML/MIN (>=60); PHOSPHORUS, SERUM 3.1 MG/DL (2.5-4.5); POTASSIUM, SERUM 4.7 MMOL/L (3.5-5.3); SODIUM, SERUM 135 MMOL/L (135-148)
[2017-01-09 06:57] LABS: GLUCOSE, SERUM 63 MG/DL (60-99)
[2017-01-10 07:09] LABS: ALBUMIN 2.7 G/DL (3.5-5.0); BUN (BLOOD UREA NITROGEN) 28 MG/DL (6-23); CALCIUM, SERUM 9.2 MG/DL (8.5-10.4); CHLORIDE, SERUM 104 MMOL/L (96-112); CO2 (CARBON DIOXIDE) 21 MMOL/L (24-34); CREATININE 3.22 MG/DL (0.70-1.30); GFR AFRICAN AMERICAN 25 ML/MIN (>=60); GFR NON AFRICAN AMERICAN 21 ML/MIN (>=60); GLUCOSE, SERUM 98 MG/DL (60-99); PHOSPHORUS, SERUM 3.4 MG/DL (2.5-4.5); POTASSIUM, SERUM 5.4 MMOL/L (3.5-5.3); SODIUM, SERUM 133 MMOL/L (135-148)
[2017-01-11 06:57] LABS: BASOPHILS 0.4 %; BASOPHILS ABSOLUTE 0.02 10/3/uL (0.0-0.16); EOSINOPHILS 5.1 %; EOSINOPHILS ABSOLUTE 0.25 10/3/uL (0.0-0.53); HEMATOCRIT 22.9 % (40.0-51.0); HEMOGLOBIN 7.5 g/dL (13.6-17.8); IMMATURE GRANULOCYTES 0.2 %; IMMATURE GRANULOCYTES ABSOLUTE 0.01 10/3/uL (0.0-0.11); LYMPHOCYTES 30.3 %; MEAN CORPUS HGB CONC 32.8 g/dL (32.0-36.0); MEAN CORPUSCULAR HEMOGLOB 27.2 pg (26.0-34.0); MEAN PLATELET VOLUME 9.6 fL (9.2-13.0); MONOCYTES 8.1 %; NEUTROPHILS 55.9 %; NEUTROPHILS ABSOLUTE 2.77 10/3/uL (2.02-8.40); PLATELET COUNT 271 10/3/uL (150-400); RBC DISTRIBUTION WIDTH 17.3 % (12.0-16.0); RED CELL COUNT 2.76 10/6/uL (4.7-6.1)
[2017-01-11 06:58] LABS: MANUAL DIFF NO %
[2017-01-11 07:12] LABS: ALBUMIN 2.6 G/DL (3.5-5.0); BUN (BLOOD UREA NITROGEN) 28 MG/DL (6-23); CALCIUM, SERUM 8.9 MG/DL (8.5-10.4); CHLORIDE, SERUM 100 MMOL/L (96-112); CO2 (CARBON DIOXIDE) 22 MMOL/L (24-34); CREATININE 3.05 MG/DL (0.70-1.30); GFR AFRICAN AMERICAN 26 ML/MIN (>=60); GFR NON AFRICAN AMERICAN 23 ML/MIN (>=60); GLUCOSE, SERUM 114 MG/DL (60-99); PHOSPHORUS, SERUM 2.7 MG/DL (2.5-4.5); POTASSIUM, SERUM 5.1 MMOL/L (3.5-5.3); SODIUM, SERUM 129 MMOL/L (135-148)
[2017-01-15 07:36] LABS: BASOPHILS 0.4 %; BASOPHILS ABSOLUTE 0.03 10/3/uL (0.0-0.16); EOSINOPHILS 3.6 %; EOSINOPHILS ABSOLUTE 0.25 10/3/uL (0.0-0.53); HEMATOCRIT 24.3 % (40.0-51.0); HEMOGLOBIN 8.1 g/dL (13.6-17.8); IMMATURE GRANULOCYTES 0.1 %; IMMATURE GRANULOCYTES ABSOLUTE 0.01 10/3/uL (0.0-0.11); LYMPHOCYTES 23.5 %; LYMPHOCYTES ABSOLUTE 1.63 10/3/uL (0.67-4.30); MEAN CORPUS HGB CONC 33.3 g/dL (32.0-36.0); MEAN CORPUSCULAR HEMOGLOB 28.4 pg (26.0-34.0); MEAN CORPUSCULAR VOLUME 85.3 fL (80-100); MEAN PLATELET VOLUME 9.1 fL (9.2-13.0); MONOCYTES 9.4 %; MONOCYTES ABSOLUTE 0.65 10/3/uL (0.21-1.20); NEUTROPHILS ABSOLUTE 4.37 10/3/uL (2.02-8.40); PLATELET COUNT 314 10/3/uL (150-400); RBC DISTRIBUTION WIDTH 17.4 % (12.0-16.0); RED CELL COUNT 2.85 10/6/uL (4.7-6.1); WHITE BLOOD CELLS 6.9 10/3/uL (4.5-10.5)
[2017-01-15 07:38] LABS: MANUAL DIFF NO %
[2017-01-15 07:52] LABS: BUN (BLOOD UREA NITROGEN) 26 MG/DL (6-23); CALCIUM, SERUM 9.2 MG/DL (8.5-10.4); CHLORIDE, SERUM 113 MMOL/L (96-112); CREATININE 3.04 MG/DL (0.70-1.30); GFR AFRICAN AMERICAN 27 ML/MIN (>=60); GFR NON AFRICAN AMERICAN 23 ML/MIN (>=60); GLUCOSE, SERUM 132 MG/DL (60-99); POTASSIUM, SERUM 5.1 MMOL/L (3.5-5.3)
[2017-01-15 07:55] LABS: CO2 (CARBON DIOXIDE) 14 MMOL/L (24-34); SODIUM, SERUM 137 MMOL/L (135-148)
[2017-01-16 06:48] LABS: BUN (BLOOD UREA NITROGEN) 27 MG/DL (6-23); CALCIUM, SERUM 9.1 MG/DL (8.5-10.4); CHLORIDE, SERUM 114 MMOL/L (96-112); CO2 (CARBON DIOXIDE) 16 MMOL/L (24-34); CREATININE 3.01 MG/DL (0.70-1.30); GFR AFRICAN AMERICAN 27 ML/MIN (>=60); GFR NON AFRICAN AMERICAN 23 ML/MIN (>=60); POTASSIUM, SERUM 5.2 MMOL/L (3.5-5.3); SODIUM, SERUM 138 MMOL/L (135-148)
[2017-01-16 06:49] LABS: GLUCOSE, SERUM 164 MG/DL (60-99)
[2017-05-15] MEDS ORDERED: ACIDOPHILU2 PO (14:45)
[2017-05-15] MEDS ORDERED: LEVEMFLXPN SC (14:47)
[2017-05-15] MEDS ORDERED: BACIT TOP (14:47)
[2017-05-15] MEDS ORDERED: PROTONIX PO (14:48)
[2017-05-15] MEDS ORDERED: SB325 PO (14:49)
[2017-05-29] MEDS ORDERED: BACIT TOP (23:12)
[2017-05-29] MEDS ORDERED: THERA MULTI1 ML PO (23:13)
[2017-05-29] MEDS ORDERED: MELATONIN10 M2 PO (23:13)
[2017-05-29] MEDS ORDERED: SEROQUEL1C PO (23:14)
[2017-05-29] MEDS ORDERED: PREVALITE4 G1 PEG (23:15)
[2017-05-29] MEDS ORDERED: HUMALOG SC (23:15)
[2017-05-29] MEDS ORDERED: H1 PO (23:16)
[2017-05-29] MEDS ORDERED: REG5 PO (23:16)
[2017-05-29] MEDS ORDERED: FESO4UDL PEG (23:17)
[2017-05-29] MEDS ORDERED: REFRESH OPH (23:18)
[2017-05-29] MEDS ORDERED: PERIDEX MT (23:19)
[2017-05-29] MEDS ORDERED: CREON 24000 UNIT PEG ×2 (23:20→23:30)
[2017-05-29] MEDS ORDERED: ACIDOPHILU2 PEG (23:22)
[2017-05-29] MEDS ORDERED: LOP25 PEG (23:23)
[2017-05-29] MEDS ORDERED: LEVEMIR SC (23:27)
[2017-05-29] MEDS ORDERED: SODBICAR10 PO (23:27)
[2017-05-29] MEDS ORDERED: MAG OXIDE250 MG PO (23:27)
[2017-05-29] MEDS ORDERED: SB325 PEG (23:28)
[2017-05-29] MEDS ORDERED: PROTONIX PO (23:28)
[2017-05-29] MEDS ORDERED: GLUCAGON IV/IM/SC (23:29)
[2017-05-29] MEDS ORDERED: 8 HOUR650 MG PO (23:29)
[2017-05-29] MEDS ORDERED: NORCO1 TA1 PEG (23:30)
[2017-05-29] MEDS ORDERED: XANAX1 MG PO (23:31)
== END 2017-01-16 15:04 | DRG 871 ==
LOC: ER 07:42 → ER/OF 10:57 → CCU 14:00 → ER/OF 15:11 → CCU 17:29 → 2SO 12-13 16:20
PROVIDERS: Emergency Medicine; Family Medicine; Hospitalist; Internal Medicine Critical Care Medicine; Internal Medicine Infectious Disease; Internal Medicine Nephrology; Internal Medicine Pulmonary Disease; Nurse Practitioner; Registered Nurse
PROC: 02HV33Z Insertion of Infusion Device into Superior Vena Cava, Percutaneous Approach (ICD-10-PCS; principal; 2016-12-12)
PROC: 4A02X4A Measurement of Cardiac Electrical Activity, Guidance, External Approach (ICD-10-PCS; 2016-12-12)
PROC: 0D20XYZ Change Other Device in Upper Intestinal Tract, External Approach (ICD-10-PCS; 2016-12-19)
PROC: 0T9B70Z Drainage of Bladder with Drainage Device, Via Natural or Artificial Opening (ICD-10-PCS; 2017-01-01)
DX: A41.51 Sepsis due to Escherichia coli [E. coli] (principal); J18.1 Lobar pneumonia, unspecified organism; J69.0 Pneumonitis due to inhalation of food and vomit; R65.21 Severe sepsis with septic shock; G93.1 Anoxic brain damage, not elsewhere classified; G93.41 Metabolic encephalopathy; N17.9 Acute kidney failure, unspecified; E87.2 Acidosis; A04.7 Enterocolitis due to Clostridium difficile; N18.3 Chronic kidney disease, stage 3 (moderate); I13.0 Hypertensive heart and chronic kidney disease with heart failure and stage 1 through stage 4 chronic kidney disease, or unspecified chronic kidney disease; E87.4 Mixed disorder of acid-base balance; I50.22 Chronic systolic (congestive) heart failure; J44.0 Chronic obstructive pulmonary disease with (acute) lower respiratory infection; I42.9 Cardiomyopathy, unspecified; E46 Unspecified protein-calorie malnutrition; I47.1 Supraventricular tachycardia; N39.0 Urinary tract infection, site not specified; B37.49 Other urogenital candidiasis; R65.20 Severe sepsis without septic shock; K70.0 Alcoholic fatty liver; B96.1 Klebsiella pneumoniae [K. pneumoniae] as the cause of diseases classified elsewhere; E87.5 Hyperkalemia; B96.20 Unspecified Escherichia coli [E. coli] as the cause of diseases classified elsewhere; L89.309 Pressure ulcer of unspecified buttock, unspecified stage; L89.159 Pressure ulcer of sacral region, unspecified stage; Z51.5 Encounter for palliative care; F17.210 Nicotine dependence, cigarettes, uncomplicated; Z66 Do not resuscitate; D63.1 Anemia in chronic kidney disease; F32.9 Major depressive disorder, single episode, unspecified; I25.10 Atherosclerotic heart disease of native coronary artery without angina pectoris; E83.42 Hypomagnesemia; E11.22 Type 2 diabetes mellitus with diabetic chronic kidney disease; F41.9 Anxiety disorder, unspecified; R13.10 Dysphagia, unspecified; J44.9 Chronic obstructive pulmonary disease, unspecified; F10.21 Alcohol dependence, in remission; G25.0 Essential tremor; K21.9 Gastro-esophageal reflux disease without esophagitis; K80.20 Calculus of gallbladder without cholecystitis without obstruction; E78.00 Pure hypercholesterolemia, unspecified; N52.9 Male erectile dysfunction, unspecified; H10.9 Unspecified conjunctivitis; N40.1 Benign prostatic hyperplasia with lower urinary tract symptoms; R33.8 Other retention of urine; Z87.442 Personal history of urinary calculi; Z82.49 Family history of ischemic heart disease and other diseases of the circulatory system; Z82.5 Family history of asthma and other chronic lower respiratory diseases
CPT/HCPCS: 36569; 36600; 49450; 71010; 74181; 76775; 80048; 80053; 80069; 80170; 80202; 81001; 82530; 82533; 82570; 82805; 82962; 83605; 83690; 83735; 84100; 84132; 84145; 84156; 84300; 84484; 84540; 85025; 85027; 85610; 85730; 87040; 87045; 87046; 87046-59; 87077; 87086; 87150; 87186; 87493; 87493-59; 87641; 87804; 87899; 87899-59; 90686; 93005; 96365; 96366; 96375; 97110-GP; 97116-GP; 97163-GP; 97164-GP; 97530-GP; 99291; A9270-GY; C1751; C1769; G0008; G0463; J0692; J1580; J2543; J3260; J3370; P9045; Q9967

== ENCOUNTER 2017-01-25 19:29 | Inpatient (IN) | payer BC, OTHER ==
--- NOTE | ~2017-01-25 | DS ---
Discharge Summary [facility] [address] [place]. [address] NAME: AISHA HARMON : 69 STATUS : DIS IN PAT#: [id number] AGE: 51 ADM/REG DATE : 01/25/17 MR#: [id number] REPORT SERV DATE: 02/14/17 DICTATED BY: NEELIMA SEGOVIA DATE: 02/13/17 REPORT STATUS : Draft TRANSCRIBED BY: MODFrida DATE: 02/13/17 Data Collection from hospitalization DISCHARGE DIAGNOSES: 1. Anemia-multifactorial (chronic kidney disease and possible gastrointestinal bleed). 2. Stage IV chronic kidney disease. 3. History of chronic diarrhea. 4. History of chronic metabolic acidosis. 5. Dysphagia with PEG. 6. Anxiety disorder. 7. Hyperkalemia. 8. Hypertension. 9. Type 2 diabetes. 10.History of nicotine dependence. 11.History of pancreatitis. 12.History of drug abuse. 13.History of chronic obstructive pulmonary disease. 14.History of systolic congestive heart failure with nonischemic cardiomyopathy. 15.Essential tremors. 16.History of fatty liver. 17.Debility. 18.Gastroesophageal reflux disease. 19.Erectile dysfunction. 20.Hypercholesterolemia. 21.Chronic metabolic acidosis. 22.Hyponatremia. CONSULTATIONS: Dr. Galdino Amador, Dr. Oscar Sims. PROCEDURES PERFORMED: CT scan of the brain without contrast, 01/31/2017. MEDICATIONS: Artificial tears two drops in each eye twice a day, bacitracin ointment applied to left eyebrow laceration topically daily, Peridex rinse one dose twice a day as instructed, Prevalite 4 g every four hours, ferrous sulfate 300 mg twice a day, Haldol 1 mg three times a day, Lantus 5 units subcutaneously at bedtime, Creon two capsules every eight hours, melatonin 20 mg at bedtime, Reglan 5 mg every eight hours, Theragran multivitamin 5 mL every morning, Lopressor 12.5 mg twice a day, Seroquel 100 mg at bedtime, Florastor 250 mg twice a day, sodium bicarb once as instructed, Creon 48,000 units every eight hours as instructed, Humalog injection insulin as instructed, magnesium oxide 500 mg twice a day, Tylenol 650 mg three times a day as needed, Xanax 1 mg every eight hours as needed, Vernon 7.5/325 one tablet every four hours as needed, glucagon 1 mg as instructed, Creon 24,000 units per PEG tube every eight hours as needed, Protonix 40 mg via PEG tube daily/orally daily as instructed, Kayexalate as instructed. CONDITION AT DISCHARGE: Stable. DISPOSITION: The patient was discharged to [facility] on a pureed diet with activities as instructed. Discharge Summary [id number] [place]. [address] NAME: AISHA HARMON : 69 STATUS : DIS IN PAT#: [id number] AGE: 51 ADM/REG DATE : 01/25/17 MR#: [id number] REPORT SERV DATE: 02/14/17 DICTATED BY: NEELIMA SEGOVIA DATE: 02/13/17 REPORT STATUS : Draft TRANSCRIBED BY: BALTAZAR DATE: 02/13/17 HOSPITAL COURSE: This is a 51-year-old man who is a resident at [facility] who was sent to the [facility] Emergency Room for anemia with a hemoglobin of 6.7 and hematocrit 20.6. The patient was admitted to the hospital at this time for further evaluation and treatment. Upon admission, the patient was transfused, iron supplement was being provided. The patient has been tolerating a pureed nectar thick diet with low potassium and this was initiated here. Aspiration precautions were in place. Home medications were going to be resumed. Fall precautions were in place. The patient was on subcu heparin for DVT prophylaxis. He had been on aspirin chronically as well. The aspirin was placed on hold. He was evaluated by Physical Therapy. On 01/27/2017, his only complaint was hunger. He had no complaints of pain, shortness of breath, nausea, vomiting, or diarrhea. The PEG tube remained intact. The patient was seen by Dr. Oscar Sims regarding anemia and occult blood in the stool. He received two units of packed red blood cells. Stools have been checked for occult blood and were positive, but there have been absolutely no evidence of gross gastrointestinal bleeding. Stools were negative for C. difficile toxin. White count was normal. We were going to continue to monitor for now. With his history of COPD, cardiomyopathy, DNR code status, and behavioral issues, he was really not a candidate for routine endoscopic evaluations, but would certainly be available to reconsider should there be evidence of an active GI bleed. The following day, he did have some watery diarrhea. He had normal distal pulses. He had no edema. On 01/29/2017, the patient was asking for something to eat. He denied any pain. His lungs were clear. The patient was seen by Dr. Galdino Amador. The patient has had chronic anemia issues for some time. His hemoglobin had started dropping at approximately the beginning of 2015. He appears to have evidence of pancreatic insufficiency, last testing has suggested that his past excretion in his stools relatively normal. He is hypoglycemic at times resulting in a profound encephalopathy in the middle of last year. He now had an evolving chronic anemia requiring transfusions. He felt that we should consider a trial of octreotide on the patient to see if this did not change the overall pattern of his stools. His albumin was 2.4. He had previously had both low and normal pre-albumins. He felt that his current overall metabolic status was actually relatively stable. His weight has not changed substantially enough to explain the drop in his creatinine, and it was felt that overall, we were going to be forced to simply try and palliate his situation and return him to his previous domicile. The next day, the patient was resting quietly. He denied any new complaints. The patient did receive nocturnal tube feedings. His PEG tube was patent. A CT scan of the brain without contrast was performed. This showed no acute infarct or hemorrhage. There was mild atrophy and chronic white matter gliosis. The patient has a 2.3 x 1.1 cm superficial soft tissue mass adjacent to the left parietal bone. The patient has a history of a chronic sacral pressure ulcer stage IV. He did have a bowel movement. The patient did have a fall and sustained a left eyebrow laceration. Discharge planning was performed. On 02/02/2017, he had no complaints of pain. His Gant catheter had been changed. H and H remained stable. Aspirin was on hold as well as Lovenox. A dose of Kayexalate was given. Discharge instructions were given. Due to his improved and stable condition, he was discharged to [facility] with the above- stated instructions. Discharge Summary [address] [place]. [address] NAME: AISHA HARMON : 69 STATUS : DIS IN PAT#: [id number] AGE: 51 ADM/REG DATE : 01/25/17 MR#: [id number] REPORT SERV DATE: 02/14/17 DICTATED BY: NEELIMA SEGOVIA DATE: 02/13/17 REPORT STATUS : Draft TRANSCRIBED BY: BALTAZAR DATE: 02/13/17 Information collected by: Brooke Arellano I submit the above information as my discharge summary. TG/BALTAZAR Neelima Segovia M.D. / [id number] CC: Nicky Gonzalez M.D. [facility] Oscar Sims M.D.
--- NOTE | ~2017-01-25 | CN ---
Consultation Report [facility] [address] [place]. [address] NAME: AISHA HARMON : 69 STATUS : ADM Thu PAT#: [id number] AGE: 51 ADM/REG DATE : 01/25/17 MR#: [id number] REPORT SERV DATE: 01/27/17 DICTATED BY: OSCAR SIMS DATE: 01/27/17 REPORT STATUS : Draft TRANSCRIBED BY: MODFrida DATE: 01/27/17 CONSULTATION DATE OF CONSULTATION: REASON FOR CONSULTATION: This is a 51-year-old man, whom I am asked to see in Dr. Huertas's absence for anemia and occult blood in the stool. 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 He is noncommunicative. His sister who is an RN from [place], [place]; is at bedside and is feeding him a pureed diet currently. He apparently has anemia, which is chronic and has a baseline of about 7 to 8. He had a negative EGD examination with his PEG tube placement last year. On presentation to the hospital, he had a hemoglobin of 6.7, and he received 2 units of packed red blood cells with a large bump to 10 and then re-equilibration to 8.8 today. Stools were checked for occult blood and were positive, but there has been absolutely no evidence of gross gastrointestinal bleeding. We were consulted to evaluate possible chronic GI bleeding. PAST MEDICAL HISTORY: 1. Unknown neurologic syndrome with swallowing dysfunction and inability to communicate. 2. Hypercholesterolemia. 3. Erectile dysfunction. 4. Chronic anemia. 5. Poorly controlled diabetes. 6. Cardiomyopathy. 7. COPD. 8. GERD. PAST SURGICAL HISTORY: Status post PEG tube placed in 2016. Status post removal of a kidney stone. MEDICATIONS: Tylenol, Xanax, aspirin, Peridex, cholestyramine, Pepcid, iron, glucagon, Haldol, hydrocodone, insulin, melatonin, Reglan, metoprolol, multivitamin, saccharomyces, Creon, oral vancomycin for unclear reasons. C. diff was actually negative on his presentation here. ALLERGIES: DENIED. FAMILY HISTORY: No GI malignancy. SOCIAL HISTORY: He is a chronic retirement resident at [facility]. REVIEW OF SYSTEMS: Otherwise unremarkable. Consultation Report [place] [id number] [facility] [address] [place]. [id number] NAME: AISHA HARMON : 69 STATUS : ADM Thu PAT#: [id number] AGE: 51 ADM/REG DATE : 01/25/17 MR#: [id number] REPORT SERV DATE: 01/27/17 DICTATED BY: OSCAR SIMS DATE: 01/27/17 REPORT STATUS : Draft TRANSCRIBED BY: BALTAZAR DATE: 01/27/17 PHYSICAL EXAMINATION: GENERAL: He is thin and cries out continuously for attention from the nursing staff, but without any specific complaints. VITAL SIGNS: Hemodynamically stable. SKIN: Warm and dry. LUNGS: Clear. ABDOMEN: Soft and nontender. EXTREMITIES: No edema. LABORATORY DATA: Hemoglobin was 6.7, then bumped to 10.3 yesterday, and is re-equilibrated at 8.8 today. Stools negative for C difficile toxin. White count normal. Occult blood positive. IMPRESSION: Chronic anemia with heme-positive stool, but no evidence of gastrointestinal bleeding. RECOMMENDATIONS: I would just continue to monitor for now. With a COPD, cardiomyopathy, DNR status, and behavioral issues, he is really not a candidate for a routine endoscopic evaluation, but would certainly be available to reconsider should there be evidence of an active GI bleed. The above was discussed with the sister. RODERICK/BALTAZAR Oscar Sims M.D. / [id number] CC: Nicky Gonzalez M.D.
--- NOTE | ~2017-01-25 | HP ---
History And Physical [address] [place]. [address] NAME: AISHA HARMON : 69 STATUS : ADM Thu PAT#: [id number] AGE: 51 ADM/REG DATE : 01/25/17 MR#: [id number] REPORT SERV DATE: 01/26/17 DICTATED BY: NEELIMA SEGOVIA DATE: 01/26/17 REPORT STATUS : Draft TRANSCRIBED BY: MODFrida DATE: 01/26/17 DATE OF ADMISSION: 01/25/2017 CHIEF COMPLAINT: Anemia. HISTORY OF PRESENT ILLNESS: The patient is a 51-year-old male known to attending from a previous hospitalization. The patient is a resident of [facility], was sent to [facility] emergency room yesterday for anemia with a hemoglobin of 6.7 and hematocrit 20.6. The patient was admitted for observation with blood transfusion. The patient with decreased mental status, unable to obtain complete medical, family, and social history. Chart and staff were reviewed. Most information obtained from reviewing electronic medical record. The nurse reports the patient had been screaming all night. ALLERGIES: NO KNOWN DRUG ALLERGIES. PAST MEDICAL HISTORY: 1. The patient with history of type 2 diabetes, poorly controlled, history of alcohol abuse. 2. Pancreatitis, history of drug abuse. 3. History of nicotine dependence; COPD; systolic congestive heart failure with nonischemic cardiomyopathy with ejection fracture of 35 to 40%; essential tremors; fatty liver,; chronic diarrhea with a history of C. diff; overall debilitation; jejunal intussusception; cholecystitis; nephrolithiasis; right renal mass, not a surgical candidate. 4. GERD. 5. Hypertension. 6. Erectile dysfunction. 7. Hypercholesteremia. 8. Chronic metabolic acidosis. 9. Hyperkalemia. 10.Hyponatremia. 11.Chronic kidney disease, stage 4, not a candidate for hemodialysis. 12.Anxiety with agitation. 13.Sacral buttock decubitus ulcer, stage IV. 14.Anemia secondary to chronic disease. SURGICAL HISTORY: Kidney stone removal and PEG tube. SOCIAL HISTORY: The patient is a long-term resident of [facility]. CODE STATUS: DNR. History And Physical [address] [address] NAME: AISHA HARMON : 69 STATUS : ADM Thu PAT#: [id number] AGE: 51 ADM/REG DATE : 01/25/17 MR#: [id number] REPORT SERV DATE: 01/26/17 DICTATED BY: NEELIMA SEGOVIA DATE: 01/26/17 REPORT STATUS : Draft TRANSCRIBED BY: BALTAZAR DATE: 01/26/17 MEDICATIONS: Home MAR reconciled. Held heparin subcu since the patient is on aspirin daily. REVIEW OF SYSTEMS: The patient with decreased mental status, limited review of system, but the patient complained of being hungry. He is able to answer simple questions. He denies any pain and any complaint of breathing problem or any nausea. PHYSICAL EXAMINATION: VITAL SIGNS: Temp 97.8, pulse 78, respiratory rate 20, BP of 157/98, sat O2 of 99%. Urine output was 900. GENERAL: The patient is awake and oriented to self, and no acute distress noted. HEENT: Normocephalic, atraumatic. Right eye with slight redness. Left eye without drainage. NECK: Supple. No pain on palpation. LUNGS: Mild upper rhonchi, but cleared with cough. No wheezing noted. Sat 02 of 99% on room air. CV: Regular rate and rhythm. Normal S1, S2. No murmurs noted. ABDOMEN: Soft, nontender. Left upper quadrant PEG tube secured without any drainage. EXTREMITIES: Bilateral upper extremity without edema. Right upper extremity with PICC line, dressing changed today. Bilateral lower extremity without edema or pain on palpation. Good distal pulses equally. : Gant in use with clear urine noted in bag to drain. LABORATORY STUDY: Admission hemoglobin and hematocrit were 6.7 and 20.6. The patient received two units of blood transfusion with a followup hemoglobin and hematocrit this morning were 10.0 and 30.5. WBC on 01/25 was 6.7, platelet was 395. INR was 1.1, PTT of 37.7, PT of 14.5. On 01/25, sodium was 142, potassium was 5.2, chloride of 117, CO2 of 15, BUN 28, creatinine of 2.39, glucose of 98. AST of 12, bilirubin of 0.2, total protein 6.8, and ALT of 22. ASSESSMENT AND PLAN: 1. Anemia secondary to chronic disease. 2. Chronic kidney disease, stage 4. 3. Chronic metabolic acidosis. 4. History of chronic diarrhea. 5. Dysphagia with percutaneous endoscopic gastrostomy tube. 6. Anxiety disorder. 7. 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 8. History of urinary retention. Gant dependent. PLAN: 1. The patient was admitted in observation for a blood transfusion. The patient did receive two units of blood transfusion and now post blood transfusion, H and H have improved with hemoglobin up to 10.0 and hematocrit up to 30.5. The patient is on iron supplement twice a day. We will increase that up to three times a day. 2. The patient with history of dysphagia with PEG tube, but the patient has been tolerating a pureed nectar thick with low-potassium diet and we will initiate that History And Physical [address] [address] NAME: AISHA HARMON : 69 STATUS : ADM Thu PAT#: [id number] AGE: 51 ADM/REG DATE : 01/25/17 MR#: [id number] REPORT SERV DATE: 01/26/17 DICTATED BY: NEELIMA SEGOVIA DATE: 01/26/17 REPORT STATUS : Draft TRANSCRIBED BY: BALTAZAR DATE: 01/26/17 today, and initiate nocturnal tube feeding of Nepro at 45 mL/hour from 9 o' clock in the p.m. and [address] the patient on aspiration precaution and monitor tube feeding residual while on tube feeding. The patient is at risk for aspiration. 3. The patient does have a history of anxiety with agitation. We will resume home medications and place the patient on fall precaution. 4. The patient with moderate eye redness, has history of conjunctivitis, but will require artificial eyedrops twice a day. The patient is at risk for conjunctivitis. 5. The patient is on heparin subcu for DVT prophylaxis. Chronically, he has been on aspirin as well. Given the patient's decreased hemoglobin and hematocrit, we will hold that and will need followup Hemoccult and a CBC and this could be done back at the SNF, so we will plan to discharge the patient back to SNF hopefully today and we will reconcile discharge medication. DICTATED BY: Jamilah Chilel NP CLP/MODL Neelima Segovia M.D. / [id number] CC: Serjio Metz M.D.
--- NOTE | ~2017-01-25 | CN ---
Consultation Report [facility] [address] [place]. [address] NAME: HARMEET HARMON : 69 STATUS : ADM IN PAT#: [id number] AGE: 51 ADM/REG DATE : 01/25/17 MR#: [id number] REPORT SERV DATE: 01/29/17 DICTATED BY: NICHOLAS AMADOR DATE: 01/29/17 REPORT STATUS : Draft TRANSCRIBED BY: MODL DATE: 01/29/17 PALLIATIVE CARE CONSULTATION DATE OF CONSULTATION: 01/29/2017 ALLERGIES: NONE DOCUMENTED. THE PATIENT IS A DO NOT RESUSCITATE BASED UPON PREVIOUS DISCUSSION. HISTORY OF PRESENT ILLNESS: Mr. Harmon, a most unfortunate 51-year-old, gentleman, is admitted through CDU with findings consistent of progressive anemia. He was initially brought in on 01/25/2017 and evaluated. His hemoglobin and hematocrit on arrival here were 6.7 and 20.6, which is a new low for him, although he has had chronic anemia issues for some time. Going back in his records, I note that his hemoglobin started dropping in approximately the beginning of 2015. He has a rather complicated fellow with a number of neurological, gastroenterological, and psychosocial problems. He appears to have evidence and pancreatic insufficiency; however, I should note that lab testing has suggested that his fat excretion in his stool is relatively normal. He is hypoglycemic at times resulting in a profound encephalopathy in the middle of last year. He appears to have both as noted endocrine and exocrine pancreatic issues. He now has an evolving chronic anemia requiring transfusion. He was seen by us at the end of last year when he was inpatient to better clarify goals of care, code status, and expectations. Detailed meetings were held with the patient's and mother. We clarified the fact that continuing medical care would certainly be appropriate, but that given his age, his progressive problems, and his progressive wounds that his prognosis was certainly guarded, and for that reason, a [id number] order was entered in the record. PAST MEDICAL HISTORY: Extensive and includes type 2 diabetes with poor control, pancreatitis, and a history of polysubstance abuse. He also has a history of nicotine dependence in the past, although I do not know that he smokes now. He is diagnosed with COPD and systolic heart failure with nonischemic cardiomyopathy and EF of between 35% and 40%. He has also been diagnosed as having a fatty liver and chronic diarrhea with C difficile last documented in 10/2016. He has chronic debility, previous jejunal intussusception, and nephrolithiasis with a right renal mass which was not felt to be appropriate for evaluation. He has been seen in the past by GI and extensively evaluated. In October, his nutritional parameters were in fact relatively good as it relates to his hematological status. In addition, he has a history of GERD, hypertension, hypercholesterolemia, chronic metabolic Consultation Report [place] [id number] [facility] [place]. [address] NAME: HARMEET HARMON : 69 STATUS : ADM IN PAT#: [id number] AGE: 51 ADM/REG DATE : 01/25/17 MR#: [id number] REPORT SERV DATE: 01/29/17 DICTATED BY: NICHOLAS AMADOR DATE: 01/29/17 REPORT STATUS : Draft TRANSCRIBED BY: BALTAZAR DATE: 01/29/17 acidosis, hyperkalemia, hyponatremia, and CKD stage IIIB/4. He has had a history of anxiety treated in the past with psychoactive substances. He has a sacral decubitus stage IV. He was initially felt to have an anemia of chronic disease, has a normal platelet count, and has a normochromic and normocytic indices. Iron, B12, and other parameters have been assessed in the past. SURGICAL HISTORY: Includes placement of a PEG tube. SOCIAL HISTORY: Long-term resident of [facility]. He has been under Dr. Chaudhry's care for some time. REVIEW OF SYSTEMS: System review is unavailable. PHYSICAL EXAMINATION: GENERAL/VITAL SIGNS: Shows a somewhat chronically ill-appearing, thin gentleman with a BMI of approximately 17.5. His weight is remarkably stable at about 117 pounds with a low of 110. His blood pressure is 153/97, temperature 97.6, respirations are 12 and not labored, and pulse 92. Regular rate and rhythm. He is not interactive. HEENT: Shows borderline dentition. He has obvious bitemporal atrophy. Trachea is midline. LUNGS: Show coarse clear breath sounds. HEART: Regular rate and rhythm. No murmurs, gallops, or extra sounds are heard. S1, S2 with symmetrical pulses. ABDOMEN: Shows bowel sounds to be somewhat hyperactive at times. A PEG tube is in place. EXTREMITIES: Thin but symmetrical. He does have a sacral decubitus which is currently dressed. NEUROLOGICAL: The patient does turn to voice. He is currently nonverbal, although there were times that he was. IMPRESSION, PLAN, AND RECOMMENDATION: Harmeet is an unfortunate 51-year-old fellow with what appears to be a chronic anemia now evolving. Curiously, his creatinine is better his GFR is approximately 30 mL/minute, and this would tend to suggest that he does not have a renal etiology for his anemia. He does have stool which is positive for blood, but given his current clinical status, this is certainly not surprising. With the repeating of his nutritional parameters three months later, he is really going to be of much value is uncertain to me. However, I would certainly recommend that we consider a trial of octreotide on him and see if that does not change the overall pattern of his stools. Noting that his albumin is 2.4 and he has previously had both low and normal prealbumins, I certainly think that his current overall metabolic status is actually relatively stable. His weight has not changed substantially enough to explain the drop in his creatinine, and I think that overall we are going to be forced to simply does try and palliate his situation and return him to his previous domicile. Consultation Report [address] [place]. [address] NAME: HARMEET HARMON : 69 STATUS : ADM IN [facility]#: [id number] AGE: 51 ADM/REG DATE : 01/25/17 MR#: [id number] REPORT SERV DATE: 01/29/17 DICTATED BY: NICHOLAS AMADOR DATE: 01/29/17 REPORT STATUS : Draft TRANSCRIBED BY: BALTAZAR DATE: 01/29/17 JANET/BALTAZAR Nicholas Amador M.D. / [id number] CC: Sly Chaudhry M.D.
[2017-01-25 18:05] LABS: BASOPHILS 0.1 %; BASOPHILS ABSOLUTE 0.01 10/3/uL (0.0-0.16); EOSINOPHILS 2.1 %; EOSINOPHILS ABSOLUTE 0.14 10/3/uL (0.0-0.53); ER CBC TAT 0 Hrs 03 Mins; IMMATURE GRANULOCYTES 0.1 %; IMMATURE GRANULOCYTES ABSOLUTE 0.01 10/3/uL (0.0-0.11); LYMPHOCYTES 34.1 %; LYMPHOCYTES ABSOLUTE 2.29 10/3/uL (0.67-4.30); MEAN CORPUS HGB CONC 32.5 g/dL (32.0-36.0); MEAN CORPUSCULAR HEMOGLOB 27.9 pg (26.0-34.0); MEAN CORPUSCULAR VOLUME 85.8 fL (80-100); MEAN PLATELET VOLUME 8.1 fL (9.2-13.0); MONOCYTES 8.6 %; MONOCYTES ABSOLUTE 0.58 10/3/uL (0.21-1.20); NEUTROPHILS ABSOLUTE 3.69 10/3/uL (2.02-8.40); PLATELET COUNT 395 10/3/uL (150-400); RBC DISTRIBUTION WIDTH 18.1 % (12.0-16.0); WHITE BLOOD CELLS 6.7 10/3/uL (4.5-10.5)
[2017-01-25 18:06] LABS: HEMATOCRIT 20.6 % (40.0-51.0); HEMOGLOBIN 6.7 g/dL (13.6-17.8)
[2017-01-25 18:09] LABS: MANUAL DIFF NO %
[2017-01-25 18:15] LABS: INTERNATIONAL NORMAL RATI 1.1 UNITS (-); PARTIAL THROMBO TIME 37.7 SEC (22.5-37.2); PROTIME (NOT ORD) 14.5 SEC (12.0-14.5)
[2017-01-25 18:20] LABS: A/G RATIO 0.6 (0.7-1.9); ALBUMIN 2.5 G/DL (3.5-5.0); BUN (BLOOD UREA NITROGEN) 28 MG/DL (6-23); CHLORIDE, SERUM 117 MMOL/L (96-112); GLOBULIN 4.3 G/DL (2.5-4.1); POTASSIUM, SERUM 5.2 MMOL/L (3.5-5.3); SGOT(AST) 12 U/L (5-40); SGPT(ALT) 22 U/L (5-65); SODIUM, SERUM 142 MMOL/L (135-148); TOTAL BILIRUBIN 0.2 MG/DL (0-1.2); TOTAL PROTEIN 6.8 G/DL (6.0-8.5)
[2017-01-25 18:24] LABS: ALKALINE PHOSPHATASE 149 U/L (45-117); CO2 (CARBON DIOXIDE) 15 MMOL/L (24-34); CREATININE 2.39 MG/DL (0.70-1.30); GFR AFRICAN AMERICAN 36 ML/MIN (>=60); GFR NON AFRICAN AMERICAN 31 ML/MIN (>=60); GLUCOSE, SERUM 98 MG/DL (60-99)
[~2017-01-25 19:29] MED LIST changes: +HEPA50006 SC; +VANCOMYCIN 125MG/5ML PO
[2017-01-25] MEDS ORDERED: H1 PO (19:49)
[2017-01-25] MEDS ORDERED: PREVALITE4 G1 PO (19:49)
[2017-01-25] MEDS ORDERED: PERIDEX MT (19:49)
[2017-01-25] MEDS ORDERED: PEP20 PO (19:50)
[2017-01-25] MEDS ORDERED: FESO4UDL PO (19:50)
[2017-01-25] MEDS ORDERED: HEPA50006 SC (19:52)
[2017-01-25] MEDS ORDERED: CREON 24,000 UNIT PO (19:54)
[2017-01-25] MEDS ORDERED: REG5 PO (20:16)
[2017-01-25] MEDS ORDERED: THERA MULTI1 ML PO (20:16)
[2017-01-25] MEDS ORDERED: LOP25 PO (20:17)
[2017-01-25] MEDS ORDERED: SODBICAR10 PO (20:17)
[2017-01-25] MEDS ORDERED: FLORASTOR250 MG PO (20:17)
[2017-01-25] MEDS ORDERED: ASAB PO (20:19)
[2017-01-25] MEDS ORDERED: VANCOCIN HCL125 MG PO (20:19)
[2017-01-25] MEDS ORDERED: HUMALOG SC (20:21)
[2017-01-25] MEDS ORDERED: MAGNESIUM OXIDE PO (20:21)
[2017-01-25] MEDS ORDERED: LANTUS SC (20:22)
[2017-01-25] MEDS ORDERED: MELATONIN10 M2 PO (20:22)
[2017-01-25] MEDS ORDERED: SEROQUEL1C PO (20:23)
[2017-01-25] MEDS ORDERED: XANAX1 MG PO (20:24)
[2017-01-25] MEDS ORDERED: 8 HOUR650 MG PO (20:24)
[2017-01-25] MEDS ORDERED: NORCO1 TA1 PO (20:25)
[2017-01-25] MEDS ORDERED: GLUCAGON IV/IM/SC (20:26)
[2017-01-25] MEDS ORDERED: CREON 24,000 UNITS PEG (20:27)
[2017-01-25] MEDS ORDERED: SB325 PEG (20:27)
[2017-01-26 05:26] LABS: HEMATOCRIT 30.5 % (40.0-51.0)
[2017-01-27 05:27] LABS: BASOPHILS 0.3 %; BASOPHILS ABSOLUTE 0.02 10/3/uL (0.0-0.16); EOSINOPHILS 0.7 %; EOSINOPHILS ABSOLUTE 0.04 10/3/uL (0.0-0.53); HEMOGLOBIN 8.8 g/dL (13.6-17.8); IMMATURE GRANULOCYTES 0.2 %; IMMATURE GRANULOCYTES ABSOLUTE 0.01 10/3/uL (0.0-0.11); LYMPHOCYTES 19.4 %; LYMPHOCYTES ABSOLUTE 1.14 10/3/uL (0.67-4.30); MEAN CORPUS HGB CONC 33.1 g/dL (32.0-36.0); MEAN CORPUSCULAR HEMOGLOB 27.8 pg (26.0-34.0); MEAN CORPUSCULAR VOLUME 84.2 fL (80-100); MEAN PLATELET VOLUME 9.3 fL (9.2-13.0); MONOCYTES 9.7 %; MONOCYTES ABSOLUTE 0.57 10/3/uL (0.21-1.20); NEUTROPHILS 69.7 %; NEUTROPHILS ABSOLUTE 4.09 10/3/uL (2.02-8.40); PLATELET COUNT 381 10/3/uL (150-400); RBC DISTRIBUTION WIDTH 17.9 % (12.0-16.0); WHITE BLOOD CELLS 5.9 10/3/uL (4.5-10.5)
[2017-01-27 05:28] LABS: HEMATOCRIT 26.6 % (40.0-51.0); MANUAL DIFF NO %; RED CELL COUNT 3.16 10/6/uL (4.7-6.1)
[2017-01-27 05:51] LABS: BUN (BLOOD UREA NITROGEN) 28 MG/DL (6-23); CALCIUM, SERUM 8.6 MG/DL (8.5-10.4); CHLORIDE, SERUM 114 MMOL/L (96-112); CREATININE 2.55 MG/DL (0.70-1.30); GFR AFRICAN AMERICAN 33 ML/MIN (>=60); GFR NON AFRICAN AMERICAN 28 ML/MIN (>=60); POTASSIUM, SERUM 4.8 MMOL/L (3.5-5.3); SODIUM, SERUM 140 MMOL/L (135-148)
[2017-01-27 06:07] LABS: CO2 (CARBON DIOXIDE) 14 MMOL/L (24-34); GLUCOSE, SERUM 175 MG/DL (60-99)
[2017-01-27 17:37] LABS: HEMATOCRIT 28.5 % (40.0-51.0); HEMOGLOBIN 9.3 g/dL (13.6-17.8)
[2017-01-28 03:57] LABS: BASOPHILS 0.4 %; BASOPHILS ABSOLUTE 0.02 10/3/uL (0.0-0.16); EOSINOPHILS 0.4 %; EOSINOPHILS ABSOLUTE 0.02 10/3/uL (0.0-0.53); HEMOGLOBIN 9.2 g/dL (13.6-17.8); IMMATURE GRANULOCYTES 0.2 %; IMMATURE GRANULOCYTES ABSOLUTE 0.01 10/3/uL (0.0-0.11); LYMPHOCYTES 8.3 %; LYMPHOCYTES ABSOLUTE 0.46 10/3/uL (0.67-4.30); MEAN CORPUS HGB CONC 32.9 g/dL (32.0-36.0); MEAN CORPUSCULAR HEMOGLOB 27.5 pg (26.0-34.0); MEAN CORPUSCULAR VOLUME 83.6 fL (80-100); MEAN PLATELET VOLUME 9.2 fL (9.2-13.0); MONOCYTES 5.6 %; MONOCYTES ABSOLUTE 0.31 10/3/uL (0.21-1.20); NEUTROPHILS 85.1 %; NEUTROPHILS ABSOLUTE 4.74 10/3/uL (2.02-8.40); PLATELET COUNT 362 10/3/uL (150-400); RBC DISTRIBUTION WIDTH 17.8 % (12.0-16.0); RED CELL COUNT 3.35 10/6/uL (4.7-6.1); WHITE BLOOD CELLS 5.6 10/3/uL (4.5-10.5)
[2017-01-28 03:58] LABS: MANUAL DIFF NO %
[2017-01-28 04:06] LABS: A/G RATIO 0.6 (0.7-1.9); ALBUMIN 2.4 G/DL (3.5-5.0); BUN (BLOOD UREA NITROGEN) 25 MG/DL (6-23); CALCIUM, SERUM 8.5 MG/DL (8.5-10.4); CHLORIDE, SERUM 110 MMOL/L (96-112); CREATININE 2.33 MG/DL (0.70-1.30); GFR AFRICAN AMERICAN 37 ML/MIN (>=60); GFR NON AFRICAN AMERICAN 32 ML/MIN (>=60); GLOBULIN 4.3 G/DL (2.5-4.1); POTASSIUM, SERUM 4.9 MMOL/L (3.5-5.3); SGOT(AST) 10 U/L (5-40); SGPT(ALT) 16 U/L (5-65); SODIUM, SERUM 137 MMOL/L (135-148); TOTAL BILIRUBIN 0.2 MG/DL (0-1.2); TOTAL PROTEIN 6.7 G/DL (6.0-8.5)
[2017-01-28 04:09] LABS: ALKALINE PHOSPHATASE 134 U/L (45-117); CO2 (CARBON DIOXIDE) 17 MMOL/L (24-34); GLUCOSE, SERUM 72 MG/DL (60-99)
[2017-01-28 08:09] LABS: ASCORBIC ACID (UR NOT ORDER) NEG (NEG); BILIRUBIN, URINE NEGATIVE (NEG); KETONE, URINE NEGATIVE (NEG); LEUKOCYTE ESTERASE(NOT OR SMALL (NEG); WBC (NOT ORDERED) (RFLEX) 9 (0-5)
[2017-01-28 17:44] LABS: HEMATOCRIT 30.3 % (40.0-51.0)
[2017-01-29 05:49] LABS: BASOPHILS 0.4 %; BASOPHILS ABSOLUTE 0.02 10/3/uL (0.0-0.16); EOSINOPHILS 2.1 %; EOSINOPHILS ABSOLUTE 0.11 10/3/uL (0.0-0.53); HEMOGLOBIN 8.9 g/dL (13.6-17.8); IMMATURE GRANULOCYTES 0.2 %; IMMATURE GRANULOCYTES ABSOLUTE 0.01 10/3/uL (0.0-0.11); LYMPHOCYTES 17.9 %; LYMPHOCYTES ABSOLUTE 0.94 10/3/uL (0.67-4.30); MEAN CORPUS HGB CONC 33.3 g/dL (32.0-36.0); MEAN CORPUSCULAR HEMOGLOB 27.5 pg (26.0-34.0); MEAN CORPUSCULAR VOLUME 82.4 fL (80-100); MEAN PLATELET VOLUME 9.5 fL (9.2-13.0); MONOCYTES 12.2 %; MONOCYTES ABSOLUTE 0.64 10/3/uL (0.21-1.20); NEUTROPHILS 67.2 %; NEUTROPHILS ABSOLUTE 3.54 10/3/uL (2.02-8.40); PLATELET COUNT 315 10/3/uL (150-400); RBC DISTRIBUTION WIDTH 17.9 % (12.0-16.0); RED CELL COUNT 3.24 10/6/uL (4.7-6.1); WHITE BLOOD CELLS 5.3 10/3/uL (4.5-10.5)
[2017-01-29 05:54] LABS: HEMATOCRIT 26.7 % (40.0-51.0); MANUAL DIFF NO %
[2017-01-29 05:58] LABS: BUN (BLOOD UREA NITROGEN) 23 MG/DL (6-23); CALCIUM, SERUM 8.6 MG/DL (8.5-10.4); CHLORIDE, SERUM 112 MMOL/L (96-112); CO2 (CARBON DIOXIDE) 18 MMOL/L (24-34); CREATININE 2.16 MG/DL (0.70-1.30); GFR AFRICAN AMERICAN 40 ML/MIN (>=60); GFR NON AFRICAN AMERICAN 35 ML/MIN (>=60); GLUCOSE, SERUM 85 MG/DL (60-99); POTASSIUM, SERUM 4.4 MMOL/L (3.5-5.3); SODIUM, SERUM 139 MMOL/L (135-148)
[2017-01-30 06:33] LABS: BASOPHILS 0.2 %; BASOPHILS ABSOLUTE 0.02 10/3/uL (0.0-0.16); EOSINOPHILS 1.5 %; EOSINOPHILS ABSOLUTE 0.12 10/3/uL (0.0-0.53); HEMOGLOBIN 9.7 g/dL (13.6-17.8); IMMATURE GRANULOCYTES 0.2 %; IMMATURE GRANULOCYTES ABSOLUTE 0.02 10/3/uL (0.0-0.11); LYMPHOCYTES 20.1 %; LYMPHOCYTES ABSOLUTE 1.64 10/3/uL (0.67-4.30); MEAN CORPUS HGB CONC 33.4 g/dL (32.0-36.0); MEAN CORPUSCULAR HEMOGLOB 28.2 pg (26.0-34.0); MEAN CORPUSCULAR VOLUME 84.3 fL (80-100); MONOCYTES 11.9 %; MONOCYTES ABSOLUTE 0.97 10/3/uL (0.21-1.20); NEUTROPHILS 66.1 %; NEUTROPHILS ABSOLUTE 5.38 10/3/uL (2.02-8.40); PLATELET COUNT 304 10/3/uL (150-400); RED CELL COUNT 3.44 10/6/uL (4.7-6.1)
[2017-01-30 06:36] LABS: MANUAL DIFF NO %; WHITE BLOOD CELLS 8.2 10/3/uL (4.5-10.5)
[2017-01-30 06:45] LABS: BUN (BLOOD UREA NITROGEN) 20 MG/DL (6-23); CALCIUM, SERUM 8.8 MG/DL (8.5-10.4); CHLORIDE, SERUM 113 MMOL/L (96-112); CO2 (CARBON DIOXIDE) 16 MMOL/L (24-34); CREATININE 2.18 MG/DL (0.70-1.30); GFR AFRICAN AMERICAN 40 ML/MIN (>=60); GFR NON AFRICAN AMERICAN 34 ML/MIN (>=60); POTASSIUM, SERUM 4.9 MMOL/L (3.5-5.3); SODIUM, SERUM 139 MMOL/L (135-148)
[2017-01-30 06:46] LABS: GLUCOSE, SERUM 147 MG/DL (60-99)
[2017-01-30 07:06] LABS: ANISOCYTOSIS 1+ (5-10/OIF) (0-5/OIF); PLATELET ESTIMATE ADQ (ADEQUATE); POLYCHROMASIA 1+ (2-5/OIF) (0-1/OIF)
[2017-01-30 15:54] LABS: HEMATOCRIT 27.4 % (40.0-51.0); HEMOGLOBIN 9.1 g/dL (13.6-17.8)
[2017-01-31 06:35] LABS: HEMOGLOBIN 9.4 g/dL (13.6-17.8)
[2017-01-31 16:17] LABS: HEMOGLOBIN 9.6 g/dL (13.6-17.8)
[2017-02-01 05:32] LABS: HEMATOCRIT 31.4 % (40.0-51.0); HEMOGLOBIN 10.2 g/dL (13.6-17.8)
[2017-02-01 17:05] LABS: HEMOGLOBIN 10.2 g/dL (13.6-17.8)
[2017-02-02 04:52] LABS: ASCORBIC ACID (UR NOT ORDER) NEG (NEG); BILIRUBIN, URINE NEGATIVE (NEG); KETONE, URINE NEGATIVE (NEG); LEUKOCYTE ESTERASE(NOT OR SMALL (NEG); WBC (NOT ORDERED) (RFLEX) 25 (0-5)
[2017-02-02 04:55] LABS: BASOPHILS 0.4 %; BASOPHILS ABSOLUTE 0.03 10/3/uL (0.0-0.16); EOSINOPHILS 1.3 %; EOSINOPHILS ABSOLUTE 0.11 10/3/uL (0.0-0.53); HEMATOCRIT 29.1 % (40.0-51.0); HEMOGLOBIN 9.6 g/dL (13.6-17.8); IMMATURE GRANULOCYTES 0.4 %; IMMATURE GRANULOCYTES ABSOLUTE 0.03 10/3/uL (0.0-0.11); LYMPHOCYTES 19.7 %; LYMPHOCYTES ABSOLUTE 1.61 10/3/uL (0.67-4.30); MEAN CORPUSCULAR VOLUME 84.8 fL (80-100); MONOCYTES 10.9 %; MONOCYTES ABSOLUTE 0.89 10/3/uL (0.21-1.20); NEUTROPHILS 67.3 %; NEUTROPHILS ABSOLUTE 5.51 10/3/uL (2.02-8.40); PLATELET COUNT 395 10/3/uL (150-400); RBC DISTRIBUTION WIDTH 17.3 % (12.0-16.0); RED CELL COUNT 3.43 10/6/uL (4.7-6.1); WHITE BLOOD CELLS 8.2 10/3/uL (4.5-10.5)
[2017-02-02 05:03] LABS: MANUAL DIFF NO %
[2017-02-02 05:07] LABS: BUN (BLOOD UREA NITROGEN) 21 MG/DL (6-23); CHLORIDE, SERUM 108 MMOL/L (96-112); CO2 (CARBON DIOXIDE) 17 MMOL/L (24-34); CREATININE 2.07 MG/DL (0.70-1.30); GFR AFRICAN AMERICAN 42 ML/MIN (>=60); GFR NON AFRICAN AMERICAN 37 ML/MIN (>=60); GLUCOSE, SERUM 131 MG/DL (60-99); SODIUM, SERUM 136 MMOL/L (135-148)
[2017-02-02 05:11] LABS: POTASSIUM, SERUM 6.3 MMOL/L (3.5-5.3)
[2017-02-02 16:50] LABS: HEMOGLOBIN 10.3 g/dL (13.6-17.8)
[2017-02-02 16:55] LABS: HEMATOCRIT 32.1 % (40.0-51.0)
[2017-05-15] MEDS ORDERED: ACIDOPHILU2 PO (14:45)
[2017-05-15] MEDS ORDERED: BACIT TOP (14:47)
[2017-05-15] MEDS ORDERED: LEVEMFLXPN SC (14:47)
[2017-05-15] MEDS ORDERED: PROTONIX PO (14:48)
[2017-05-15] MEDS ORDERED: SB325 PO (14:49)
[2017-05-29] MEDS ORDERED: BACIT TOP (23:12)
[2017-05-29] MEDS ORDERED: MELATONIN10 M2 PO (23:13)
[2017-05-29] MEDS ORDERED: THERA MULTI1 ML PO (23:13)
[2017-05-29] MEDS ORDERED: SEROQUEL1C PO (23:14)
[2017-05-29] MEDS ORDERED: PREVALITE4 G1 PEG (23:15)
[2017-05-29] MEDS ORDERED: HUMALOG SC (23:15)
[2017-05-29] MEDS ORDERED: REG5 PO (23:16)
[2017-05-29] MEDS ORDERED: H1 PO (23:16)
[2017-05-29] MEDS ORDERED: FESO4UDL PEG (23:17)
[2017-05-29] MEDS ORDERED: REFRESH OPH (23:18)
[2017-05-29] MEDS ORDERED: PERIDEX MT (23:19)
[2017-05-29] MEDS ORDERED: CREON 24000 UNIT PEG ×2 (23:20→23:30)
[2017-05-29] MEDS ORDERED: ACIDOPHILU2 PEG (23:22)
[2017-05-29] MEDS ORDERED: LOP25 PEG (23:23)
[2017-05-29] MEDS ORDERED: MAG OXIDE250 MG PO (23:27)
[2017-05-29] MEDS ORDERED: LEVEMIR SC (23:27)
[2017-05-29] MEDS ORDERED: SODBICAR10 PO (23:27)
[2017-05-29] MEDS ORDERED: PROTONIX PO (23:28)
[2017-05-29] MEDS ORDERED: SB325 PEG (23:28)
[2017-05-29] MEDS ORDERED: 8 HOUR650 MG PO (23:29)
[2017-05-29] MEDS ORDERED: GLUCAGON IV/IM/SC (23:29)
[2017-05-29] MEDS ORDERED: NORCO1 TA1 PEG (23:30)
[2017-05-29] MEDS ORDERED: XANAX1 MG PO (23:31)
== END 2017-02-02 18:50 | DRG 291 ==
LOC: ER 19:29 → CDU1 20:43 → 4SO 01-29 14:50
PROVIDERS: Family Medicine; Physician Assistant
PROC: 30233N1 Transfusion of Nonautologous Red Blood Cells into Peripheral Vein, Percutaneous Approach (ICD-10-PCS; principal; 2017-01-25)
DX: I13.0 Hypertensive heart and chronic kidney disease with heart failure and stage 1 through stage 4 chronic kidney disease, or unspecified chronic kidney disease (principal); L89.154 Pressure ulcer of sacral region, stage 4; E87.2 Acidosis; N18.4 Chronic kidney disease, stage 4 (severe); I42.8 Other cardiomyopathies; R13.10 Dysphagia, unspecified; E87.5 Hyperkalemia; I50.22 Chronic systolic (congestive) heart failure; K92.1 Melena; Z51.5 Encounter for palliative care; Z93.1 Gastrostomy status; D63.1 Anemia in chronic kidney disease; F10.21 Alcohol dependence, in remission; K21.9 Gastro-esophageal reflux disease without esophagitis; E78.00 Pure hypercholesterolemia, unspecified; Z66 Do not resuscitate; F41.9 Anxiety disorder, unspecified; R33.9 Retention of urine, unspecified; R29.818 Other symptoms and signs involving the nervous system; J44.9 Chronic obstructive pulmonary disease, unspecified; Z87.442 Personal history of urinary calculi; R53.1 Weakness; K63.9 Disease of intestine, unspecified; B96.1 Klebsiella pneumoniae [K. pneumoniae] as the cause of diseases classified elsewhere; B96.89 Other specified bacterial agents as the cause of diseases classified elsewhere; Z87.891 Personal history of nicotine dependence; K86.81 Exocrine pancreatic insufficiency
CPT/HCPCS: 36415; 70450; 71010; 80048; 80053; 81001; 82272; 82962; 84132; 85014; 85018; 85025; 85610; 85730; 86850; 86900; 86901; 86920; 87040; 87077; 87086; 87186; 87493; 87493-59; 96374; 96375; 97116-GP; 97162-GP; 97530-GP; 99285; A9270-GY; C9113; J1200; J2405; J2550; J2800; P9016